=== PATIENT | male | born 1960 | race Two or more races ===

== ENCOUNTER 2016-05-19 20:31 | Emergency (ER) | payer SELFPAY ==
--- NOTE | 2016-05-19 20:35 | EDPHY ---
H & P Time Seen by Provider: 05/19/16 20:35 HPI/ROS: CHIEF COMPLAINT: Nausea and vomiting HISTORY OF PRESENT ILLNESS: Patient is diabetes and is a patient of [facility]. He had oysters at 2:00 p.m. and then at 5:00 p.m. started having multiple episodes of nausea and vomiting. No diarrhea or abdominal pain. No fever or chills. No blood or coffee grounds in the emesis. Symptoms moderate to severe and worse with trying to eat or drink anything. REVIEW OF SYSTEMS: Eye: no change in vision ENT: no sore throat Cardiac: no chest pain or syncope Pulmonary: no cough or SOB Abdomen: HPI Musculoskeletal: no back pain Skin: no rash Neuro: no headache Constitutional: no fever : no urinary symptoms A comprehensive 10 point review of systems is otherwise negative aside from elements mentioned in the history of present illness. PAST MEDICAL HISTORY: Diabetes Social history: Primarily Somali speaking, here with his daughter. General Appearance: Alert and conversant, cooperative. Eyes: No scleral icterus. ENT, Mouth: Dry mucous membranes. Respiratory: Normal respiratory effort, breath sounds equal, lungs are clear to auscultation. Cardiovascular: Regular rate and rhythm. Gastrointestinal: Abdomen is soft and non tender. Neurological: Alert and follows commands. Normally conversant, in Somali. Face symmetric, normal movement and sensation in all extremities. Skin: Warm and dry, no rashes. Musculoskeletal: No peripheral edema and no joint swelling. Psychiatric: Not agitated. Emergency Department course/MDM: Zofran 4 mg IV and normal saline 2 L IV for dehydration from nausea and vomiting. EKG and labs to include CBC and chemistry. 2350: Feels better, wants to tolerate oral fluids, abdomen soft and nontender Likely food related or viral , doubt surgical process. Not in DKA. Smoking Status: Never smoked Constitutional: Initial Vital Signs Temperature (C) 36.3 C 05/19/16 20:31 Heart Rate 90 05/19/16 20:31 Respiratory Rate 18 05/19/16 20:31 Blood Pressure 140/85 H 05/19/16 20:31 O2 Sat (%) 96 05/19/16 20:31 O2 Delivery Mode Room Air O2 (L/minute) 2 Allergies/Adverse Reactions: No Known Allergies Allergy (Verified 05/19/16 20:50) Home Medications: Medication Instructions Recorded Acyclovir [Zovirax 400 mg (*)] 400 mg PO .TID #20 tab 05/11/12 Htn Pill 05/11/12 Atorvastatin Calcium 10/08/13 LORazepam [Ativan 1 mg (RX)] 1 mg PO Q6-8PRN PRN #10 tab 10/08/13 Levemir 10/08/13 Insulin Regular Human 05/19/16 Medical Decision Making - Diagnostics EKG Interpretation: 12-lead EKG interpreted by me; official reading is in trace master. My interpretation is sinus rhythm, rate 78, no ischemic changes. Differential Diagnosis: Differential considered including but not limited to gastroenteritis, food poisoning, acute coronary syndrome, diabetic problem - Data Points Laboratory Results: Laboratory Results 05/19/16 20:50 05/19/16 20:50 05/19/16 05/19/16 20:50 20:50 WBC 11.43 10^3/uL H 10^3/uL (3.80-9.50) RBC 5.69 10^6/uL 10^6/uL (4.40-6.38) Hgb 17.5 g/dL g/dL (13.7-17.5) Hct 49.5 % % (40.0-51.0) MCV 87.0 fL fL (81.5-99.8) MCH 30.8 pg pg (27.9-34.1) MCHC 35.4 g/dL g/dL (32.4-36.7) RDW 12.0 % % (11.5-15.2) Plt Count 218 10^3/uL 10^3/uL (150-400) MPV 9.5 fL fL (8.7-11.7) Neut % (Auto) 79.4 % H % (39.3-74.2) Lymph % (Auto) 14.4 % L % (15.0-45.0) [place] % (Auto) 4.7 % % (4.5-13.0) Eos % (Auto) 0.6 % % (0.6-7.6) Baso % (Auto) 0.3 % % (0.3-1.7) Nucleat RBC Rel Count 0.0 % % (0.0-0.2) Absolute Neuts (auto) 9.07 10^3/uL H 10^3/uL (1.70-6.50) Absolute Lymphs (auto) 1.65 10^3/uL 10^3/uL (1.00-3.00) Absolute Monos (auto) 0.54 10^3/uL 10^3/uL (0.30-0.80) Absolute Eos (auto) 0.07 10^3/uL 10^3/uL (0.03-0.40) Absolute Basos (auto) 0.03 10^3/uL 10^3/uL (0.02-0.10) Absolute Nucleated RBC 0.00 10^3/uL 10^3/uL (0-0.01) Immature Gran % 0.6 % % (0.0-1.1) Immature Gran # 0.07 10^3/uL 10^3/uL (0.00-0.10) Sodium 132 mEq/L L mEq/L (134-144) Potassium 3.9 mEq/L mEq/L (3.5-5.2) Chloride 97 mEq/L mEq/L (97-110) Carbon Dioxide 23 mEq/l mEq/l (22-31) Anion Gap 12 mEq/L mEq/L (8-16) BUN 21 mg/dL mg/dL (7-23) Creatinine 0.5 mg/dL L mg/dL (0.7-1.3) Estimated GFR > 60 Glucose 411 mg/dL H mg/dL (70-100) Calcium 9.5 mg/dL mg/dL (8.5-10.4) Medications Given: Discontinued Medications Sodium Chloride (Ns) 1,000 mls @ 0 mls/hr IV ONCE ONE PRN Reason: Wide Open Stop: 05/19/16 20:43 Last Admin: 05/19/16 20:52 Dose: 1,000 mls Sodium Chloride (Ns) 1,000 mls @ 0 mls/hr IV ONCE ONE PRN Reason: Wide Open Stop: 05/19/16 20:43 Last Admin: 05/19/16 20:53 Dose: 1,000 mls Ondansetron HCl (Zofran) 4 mg IVP EDNOW ONE Stop: 05/19/16 20:43 Last Admin: 05/19/16 20:53 Dose: 4 mg Ondansetron HCl (Zofran Odt 4 Mg Prepack#2) 1 btl TAKEAPOLLO MILLER ONE Stop: 05/19/16 22:51 Last Admin: 05/19/16 23:04 Dose: 1 btl Departure - Departure Disposition: Home, Routine, Self-Care Clinical Impression: Nausea & vomiting Qualifiers: Vomiting type: unspecified Vomiting Intractability: non-intractable Qualified Code(s): R11.2 - Nausea with vomiting, unspecified Condition: Good Instructions: Ondansetron (By mouth), Acute Nausea and Vomiting (ED) Referrals: [facility],. [Clinic] - As per Instructions
[2016-05-19] MEDS ORDERED: NS 1,000 ML IV ONE ×2 (20:42)
[2016-05-19] MEDS ORDERED: ONDANSETRON 4 MG/2 ML VIAL IVP ONE (20:42)
[2016-05-19] MEDS ORDERED: ONDANSETRON 4 MG/2 ML VIAL ONE (20:45)
--- NOTE | 2016-05-19 20:56 | CPEKG ---
Heart Rate: 78 RR Interval: 769 P-R Interval: 180 QRSD Interval: 94 QT Interval: 384 QTC Interval: 438 P [place]: 67 QRS [place]: 58 T Wave [place]: 16 EKG Severity - NORMAL ECG - EKG Impression: SINUS RHYTHM Electronically Signed By: Frandy Camacho 19-May-2016 20:58:14
[2016-05-19 21:03] VITALS: RESP 20
[2016-05-19 21:09] LABS: % IMMATURE GRANULYOCYTES 0.6 % (0.0-1.1); ABSOLUTE IMMATURE GRANULOCYTES 0.07 10^3/uL (0.00-0.10); ADD DIFF? NO; ADD MORPH? NO; ADD SCAN? NO; ATYPICAL LYMPHOCYTE FLAG 10 (0-99); FRAGMENT RBC FLAG 0 (0-99); HEMATOCRIT 49.5 % (40.0-51.0); HEMOGLOBIN 17.5 g/dL (13.7-17.5); LEFT SHIFT FLG 10 (0-99); LIPEMIA HEMOLYSIS FLAG 90 (0-99); MEAN CELL HEMOGLOBIN 30.8 pg (27.9-34.1); MEAN CELL HEMOGLOBIN CONCENTR. 35.4 g/dL (32.4-36.7); MEAN PLATELET VOLUME 9.5 fL (8.7-11.7); PLATELET CLUMPS FLAG 0 (0-99); PLATELET COUNT 218 10^3/uL (150-400); RED BLOOD CELL COUNT 5.69 10^6/uL (4.40-6.38)
[2016-05-19 21:32] LABS: ANION GAP 12 mEq/L (8-16); CALCIUM 9.5 mg/dL (8.5-10.4); CARBON DIOXIDE 23 mEq/l (22-31); CHLORIDE 97 mEq/L (97-110); CREATININE 0.5 mg/dL (0.7-1.3); GLOMERULAR FILTRATION RATE > 60; GLUCOSE 411 mg/dL (70-100); POTASSIUM 3.9 mEq/L (3.5-5.2); SODIUM 132 mEq/L (134-144)
[2016-05-19 22:14] VITALS: TEMP 97.7
[2016-05-19] MEDS ORDERED: ONDANSETRON 4MG PREPACK#2 BTL TAKEHOME ONE (22:50)
[2016-05-19 23:05] VITALS: BP 116/68; PULSE 80; O2SAT 97
== END 2016-05-19 23:07 | disposition home or self-care (01) ==
DX: R11.2 Nausea with vomiting, unspecified (principal); E11.9 Type 2 diabetes mellitus without complications; Z79.4 Long term (current) use of insulin
CPT/HCPCS: 96374; J2405

== ENCOUNTER 2017-04-29 13:34 | Inpatient (IN) | payer MEDICAID ==
[2017-04-29] MEDS ORDERED: NITROGLYCERIN 0.4 MG BTL SL ONE (13:43)
[2017-04-29] MEDS ORDERED: LIDOCAINE 1% 300 MG/30 ML SDV ONE (13:46)
[2017-04-29] MEDS ORDERED: fentaNYL 100 MCG/2 ML INJ ONE (13:46)
[2017-04-29] MEDS ORDERED: MIDAZOLAM 2 MG/2 ML VIAL ONE (13:47)
[2017-04-29] MEDS ORDERED: IOPAMIDOL (ISOVUE-370) 150 ML BTL IV ONE ×2 (13:47→14:46)
[2017-04-29] MEDS ORDERED: ASPIRIN 81 MG CHEWABLE TAB ONE (13:48)
--- NOTE | 2017-04-29 13:48 | EDPHY ---
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 He has associated dyspnea and nausea, but no vomiting. He does not think he has a cardiac disease history. 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 REVIEW OF SYSTEMS: Aside from elements discussed in the HPI, a comprehensive 10-point review of systems was reviewed and is negative. PMH: Insulin-dependent diabetes. SOCIAL HISTORY: Primarily Kuwaiti-speaking. 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 Denies alcohol use. PHYSICAL EXAM: General:Patient is alert, tachypneic, appears very uncomfortable. ENT:Eyes are normal to inspection. ENT inspection normal. Neck: Normal inspection. Full range of motion. Respiratory:No respiratory distress. Breath sounds normal bilaterally. Cardiovascular: Regular rate and rhythm. Strong peripheral pulses. Normal cap refill. Abdomen:The abdomen is nontender to palpation. There are no peritoneal signs. Back: Normal to inspection. No tenderness to palpation. Skin: Normal color. No rash. Warm and dry. Extremities: Normal appearance. Full range of motion. Neuro: Oriented x3. Normal motor function. Normal sensory function. ED Course: This is a 57 y/o male with diabetes who presents with a 6-hour history of acute substernal chest pain radiating into his left arm with associated nausea. He is ill-appearing, tachypneic, and diaphoretic. Presentation concerning for acute coronary syndrome. Plan for 2 IVs, labs, EKG. The 12 lead EKG was interpreted by myself. STEMI, likely LAD lesion. See hard copy and/or "tracemaster" electronic copy for interpretation. 1339: Cardiac alert activated. 1344: Dr. Cameron, emt i/85, at bedside assessing patient. 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 Critical care time spent by me, Dr. Branch, exclusively with this patient was 20 minutes, exclusive of PA time and exclusive of procedures. The organ system at risk was cardiovascular. Time spent in serial assessments of the patient, consideration of interventions, cardiology consultation, and review of EKGs. General Initial Vital Signs: Initial Vital Signs Temperature (C) 36.8 C 04/29/17 13:39 Heart Rate 92 04/29/17 13:39 Respiratory Rate 24 H 04/29/17 13:39 Blood Pressure 141/80 H 04/29/17 13:39 O2 Sat (%) 100 04/29/17 13:39 O2 Delivery Mode Room Air Allergies/Adverse Reactions: No Known Allergies Allergy (Verified 05/19/16 20:50) Home Medications: Medication Instructions Recorded Insulin Detemir [Levemir Flextouch] 20 unit SQ DAILY 10/08/13 Insulin Aspart [Novolog Flexpen] 10 unit SQ DAILYAC 05/19/16 Herbals/Supplements -Info Only 1 ea PO DAILY 04/29/17 Insulin Detemir [Levemir Flextouch] 10 unit SQ HS 04/29/17 Departure - Departure Disposition: To OP Cath/Surgery Clinical Impression: STEMI (ST elevation myocardial infarction) Qualifiers: Involved coronary artery: LAD coronary artery Qualified Code(s): I21.02 - ST elevation (STEMI) myocardial infarction involving left anterior descending coronary artery Condition: Fair Report Scribed for: Santo Branch Report Scribed by: Sandra Castillo Date of Report: 04/29/17 Time of Report: 13:49 Physician Review and Approval Statement: Portions of this note were transcribed by an ED scribe. I personally performed the history, physical exam, and medical decision making; and confirm the accuracy of the information in the transcribed note.
[2017-04-29] MEDS ORDERED: HEPARIN 10,000 UNIT/10 ML MDV (1,000 UNIT/ML) ONE (13:50)
[2017-04-29] MEDS ORDERED: BIVALIRUDIN 250 MG/5 ML VIAL IV ONE (13:50)
--- NOTE | 2017-04-29 13:50 | CPEKG ---
Heart Rate: 93 RR Interval: 645 P-R Interval: 176 QRSD Interval: 120 QT Interval: 344 QTC Interval: 428 P [place]: 72 QRS [place]: 15 T Wave [place]: 65 EKG Severity - ABNORMAL ECG - EKG Impression: STEMI EKG Impression: SINUS RHYTHM EKG Impression: INCOMPLETE LEFT BUNDLE BRANCH BLOCK EKG Impression: ANTERIOR Q WAVES, POSSIBLY DUE TO ILBBB Electronically Signed By: Santo Branch 29-Apr-2017 14:53:51
[2017-04-29 13:57] LABS: PLATELET COUNT 243 10^3/uL (150-400)
[2017-04-29 14:09] LABS: INR 0.85 (0.83-1.16); PROTIME(PATIENT) 11.8 SEC (12.0-15.0)
[2017-04-29] MEDS ORDERED: ONDANSETRON 4 MG/2 ML VIAL ONE (14:17)
--- NOTE | 2017-04-29 14:18 | GHP ---
[f rep st] HISTORY AND PHYSICAL DATE OF ADMISSION: 04/29/2017 REASON FOR ADMISSION: Acute anterior ST-segment elevation myocardial infarction. HISTORY OF PRESENT ILLNESS: The patient is an insulin-dependent diabetic with no prior cardiac histo ry. Approximately 8 o'clock this morning he developed significant substernal chest pain with radiati on to the left arm. Eventually, his boss transported him to the emergency room at [facility]. Here, his initial ECG demonstrates ST-segment elevation in the anterior leads consistent with an acute myocardial infarction. PAST MEDICAL HISTORY: Positive for insulin-dependent diabetes. He says he does not have hypertensio n. He does not know the status of his cholesterol. MEDICATIONS: Unknown at this time. ALLERGIES: No known drug allergies. FAMILY HISTORY: Noncontributory. SOCIAL HISTORY: He is a nonsmoker and does not consume alcohol. Details regarding his living situat ion and occupational status were not obtained. REVIEW OF SYSTEMS: Apart from the chest discomfort that prompted this hospital encounter, a 10-point review was negative. PHYSICAL EXAMINATION: VITAL SIGNS: Heart rate in the 90s with sinus rhythm on the monitor. Blood p ressure 141/80, O2 saturation 100% on room air. GENERAL: This is a middle aged male, who a ppears in at least moderate discomfort. HEAD AND NECK: No scleral icterus. Mucous membranes moist. Carotid pulses 2+ without bruits. CHEST: Lung poole clear to auscultation. CARDIAC: Regular ra te and rhythm with normal S1 and S2. No murmur or gallop appreciated. ABDOMEN: Soft, nontender, no ndistended, with normal bowel sounds. EXTREMITIES: 2+ pulses and no peripheral edema. LABORATORY STUDIES: Pending at the time of this dictation. ECG: His ECG demonstrates sinus rhythm. There was an incomplete left bundle branch block. He has u p to [address]-segment elevation from lead V2 to V5. IMPRESSION: This is a 57-year-old male with clinical presentation of chest pain and ECG changes cons istent with an acute anterior ST-segment elevation myocardial infarction. He is hemodynamically stab le. He has not had any arrhythmias. He does not exhibit evidence of congestive heart failure. PLAN: Preparations are underway to take the patient to the cardiac catheterization lab emergently fo r angiography and probable percutaneous coronary intervention. The patient will require a hospital s [place] greater than 2 midnights for care of his acute myocardial infarction. /[id number]/MODL
[2017-04-29] MEDS ORDERED: NITROGLYCERIN 1,500 MCG/15 ML VIAL MISC ONE (14:29)
[2017-04-29] MEDS ORDERED: EPTIFIBATIDE 20 MG/10 ML VIAL IVP ONE (14:32)
[2017-04-29] MEDS ORDERED: CLOPIDOGREL BISULFATE 75 MG TAB ONE (15:18)
[2017-04-29] MEDS ORDERED: ATROPINE SULFATE 1 MG/10 ML SYR IVP PRN (15:36)
[2017-04-29] MEDS ORDERED: CLOPIDOGREL BISULFATE 75 MG TAB PO ONE (15:36)
[2017-04-29] MEDS ORDERED: LORazepam 2 MG/ML INJ IVP PRN (15:36)
[2017-04-29] MEDS ORDERED: ACETAMINOPHEN 325 MG TAB PO PRN (15:36)
[2017-04-29] MEDS ORDERED: NS 1,000 ML IV SCH (15:45)
[2017-04-29] MEDS ORDERED: EPTIFIBATIDE 100 ML IV SCH ×2 (16:30)
--- NOTE | 2017-04-29 16:47 | CPEKG ---
Heart Rate: 69 RR Interval: 870 P-R Interval: 164 QRSD Interval: 86 QT Interval: 388 QTC Interval: 416 P [place]: 63 QRS [place]: 83 T Wave [place]: 88 EKG Severity - ABNORMAL ECG - EKG Impression: SINUS RHYTHM EKG Impression: CONSIDER ANTEROSEPTAL INFARCT EKG Impression: NONSPECIFIC T ABNORMALITIES, LATERAL LEADS EKG Impression: MINIMAL INFEROLATERAL ST ELEVATION. EKG Impression: COMPARED WITH 04/29/2017 AT 1:39 P.M., ST ELEVATION HAS IMPROVED DRAMATICALLY Electronically Signed By: Luz Peck 30-Apr-2017 18:08:12
[2017-04-29] MEDS ORDERED: D50W 25 GM/50 ML SYR IVP PRN (17:02)
[2017-04-29] MEDS ORDERED: INSULIN LISPRO 100 UNIT/ML SC SCH (18:00)
[2017-04-29] MEDS: CARVEDILOL 3.125 MG TAB PO SCH (18:36)
[2017-04-29] MEDS ORDERED: INSULIN DETEMIR 10 UNIT SQ SCH ×2 (21:00)
[2017-04-29] MEDS ORDERED: INSULIN GLARGINE 100 UNITS/ML UNIT SC SCH (21:00)
--- NOTE | 2017-04-29 21:42 | GCON ---
[f rep st] CONSULTATION REQUESTING PHYSICIAN: Constantine Cameron MD CONSULTING QUESTION: Medical management. HISTORY OF PRESENT ILLNESS: A 57-year-old male with a history of insulin-dependent diabetes, who pre sents with complaints of chest pain. Per the patient's description, he had been having stuttering sy mptoms with exertion and rest in the several days prior to his presentation. On the morning of prese ntation approximately 8 o'clock, developed substernal chest discomfort which radiated to his left arm , severe, associated with nausea, vomiting, diaphoresis, and shortness of breath. He was therefore b rought to the emergency department for evaluation. In the ED, patient was seen by Cardiology and fredis rgently taken for cardiac cath. My interview occurs post catheterization. The patient is reporting to be chest pain free. He denies any shortness of breath, diaphoresis, dizziness, abdominal discomfo rt, lower extremity discomfort. Denies any recent symptoms of orthopnea, PND, or lower extremity nelli ma. PAST MEDICAL HISTORY: Diabetes for which he takes oral medications and insulin. SOCIAL HISTORY: Negative for tobacco, alcohol, or illicit drugs. FAMILY HISTORY: Patient denies any other relatives with a history of heart disease. REVIEW OF SYSTEMS: A 10-point review of systems is negative with the exception of that reported in t he HPI. PHYSICAL EXAMINATION: VITAL SIGNS: Blood pressure 110/68, heart rate 70, respiratory rate 15, satur ating 100% on 4 L, 36.7. GENERAL: This is a very pleasant male, lying flat in bed HEENT: Notable f or moist mucous membranes. Eye exam is negative for any icterus. CARDIAC: Regular rate and rhythm. PULMONARY: Clear to auscultation bilaterally. GASTROINTESTINAL: Positive bowel sounds. Abdomen is soft and nontender. MUSCULOSKELETAL: Negative for any lower extremity edema. SKIN: Negative for any rashes. NEUROLOGIC: He is alert and oriented x3. PSYCHIATRIC: He is pleasant and cooperative o n interview and examination. DATA: Troponin 0.076. EKG, which I personally reviewed and interpreted, shows ST elevations in the precordial leads. ASSESSMENT AND PLAN: This is a 57-year-old diabetic male, presenting with ST-elevation myocardial in farction. 1. ST-elevation myocardial infarction. Patient was taken emergently to the cardiac laboratory machinist. Dr. Philip day placed a stent to the left anterior descending. He is chest pain free on my interview, noemi rice in his post cath time lying flat and is on an Integrilin drip. Cardiology will manage the ST-elev ation myocardial infarction. 2. Diabetes. Patient's blood glucose is in the 300s at presentation. He reportedly takes long-acti ng insulin in the home, which we have not confirmed. Will initiate lispro sliding scale insulin, as well as glargine this evening low-dose 10 units to assist with glycemic control. We can further up t itrate the regimen once his medications have been confirmed by the med reconciliation pharmacist. Wi ll additionally check a hemoglobin A1c. 3. Prophylaxis. Patient is on Integrilin drip. 4. Diet. Cardiac. DISPOSITION: Greater than 2 midnights as the patient is presenting with an ST-elevation myocardial i nfarction requiring close cardiac monitoring in his postprocedural time. I have discussed the case w ith the ICU nurse. Patient will be admitted to the ICU and monitored closely post catheterization. Thank you for the consultation. We will follow along with you. /[id number]/MODL
[2017-04-29 21:58] LABS: CREATINE KINASE 2066 IU/L (0-224)
[2017-04-30 05:19] LABS: PLATELET COUNT 150 10^3/uL (150-400)
[2017-04-30] MEDS: HYDROCODONE/APAP 5/325 TAB PO PRN (05:19)
[2017-04-30 05:33] LABS: CREATINE KINASE 1493 IU/L (0-224)
[2017-04-30] MEDS ORDERED: INSULIN ASPART 10 UNIT SQ SCH ×2 (07:30)
--- NOTE | 2017-04-30 08:52 | CPEKG ---
Heart Rate: 64 RR Interval: 938 P-R Interval: 164 QRSD Interval: 92 QT Interval: 412 QTC Interval: 425 P [place]: 64 QRS [place]: 78 T Wave [place]: 104 EKG Severity - ABNORMAL ECG - EKG Impression: SINUS RHYTHM EKG Impression: CONSIDER ANTEROSEPTAL INFARCT EKG Impression: ABNORMAL T, CONSIDER ISCHEMIA, LATERAL LEADS EKG Impression: MINIMAL INFEROLATERAL ST ELEVATION EKG Impression: COMPARED WITH 04/09/2017 AT 4:45 P.M., CHANGES CONSISTENT WITH EVOLVING ACUTE EKG Impression: INFEROLATERAL MA ARE SEEN. Electronically Signed By: Luz Peck 30-Apr-2017 18:07:19
[2017-04-30] MEDS ORDERED: INSULIN DETEMIR 20 UNIT SQ SCH (09:00)
[2017-04-30] MEDS ORDERED: NON-FORMULARY NEW DRUG (Insulin Detemir [Levemir Flextouch] 20 UNIT) SQ SCH (09:00)
[2017-04-30] MEDS ORDERED: LISINOPRIL 5 MG TAB PO SCH (09:00)
[2017-04-30] MEDS: ATORVASTATIN CALCIUM 40 MG TAB PO SCH (09:37)
[2017-04-30] MEDS: CLOPIDOGREL BISULFATE 75 MG TAB PO SCH (09:38)
[2017-04-30] MEDS: ASPIRIN EC 325 MG TAB PO SCH (09:38)
[2017-04-30] MEDS: CARVEDILOL 3.125 MG TAB PO SCH ×2 (10:58→17:57)
[2017-04-30] MEDS: ONDANSETRON 4 MG/2 ML VIAL IVP PRN ×2 (12:06→20:07)
--- NOTE | 2017-04-30 12:06 | CPEKG ---
Heart Rate: 63 RR Interval: 952 P-R Interval: 156 QRSD Interval: 78 QT Interval: 416 QTC Interval: 426 P [place]: 56 QRS [place]: 87 T Wave [place]: 116 EKG Severity - ABNORMAL ECG - EKG Impression: SINUS RHYTHM EKG Impression: CONSIDER ANTEROSEPTAL INFARCT EKG Impression: MINIMAL INFEROLATERAL ST ELEVATION. EKG Impression: ABNORMAL T, CONSIDER ISCHEMIA, ANT-LAT LEADS EKG Impression: COMPARED WITH 04/30/2017 AT 8:51 A.M., NO SIGNIFICANT CHANGE Electronically Signed By: Luz Peck 30-Apr-2017 18:06:35
[2017-04-30] MEDS: DOPamine 400 MG in D5W 250 ML IV SCH (12:40)
--- NOTE | 2017-04-30 12:55 | PDDXCAT ---
Diagnostic Cath Note - . 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 LAD: Proximal LAD 100%. LCX: Normal. RCA: Minimal irregularities. EDP: 30 mmHg LVEF: 30% Wall motion: Anterior and apical akinesis. Complications: None Estimated blood loss: <50ml Closure method: Angioseal Assessment: 1) Ischemic cardiomyopathy with severely reduced left ventricular systolic function. 2) Coronary artery disease as described above. 3) Successful PCI with placement of 2 drug-coated stents in left anterior descending and balloon angioplasty of the principal diagonal branch. Intervention: Based on the patient's clinical presentation and diagnostic angiography, the decision was made to perform PCI of the occluded left anterior descending. The patient received intravenous Angiomax. A 6 Czech CLS 3.5 guide catheter was advanced to the left main. An Intuition guidewire was advanced to the apical portion of the left anterior descending. At this point, anterograde flow was reestablished and angiography demonstrated a lengthy segment of high-grade disease in the proximal to mid-LAD. In addition, the principal diagonal branch has a significant ostial stenosis as well as a moderate to high-grade stenosis involving the inferior branch following a bifurcation. A second Intuition guidewire was advanced into the distal portion of the principal diagonal branch. Predilatation of the mid to proximal LAD was performed using a 2.5 x 15 mm Emerge balloon. The Emerge balloon was then used to perform angioplasty of the proximal portion of the principal diagonal branch. A 3.0 x 38 mm Synergy stent was then advanced into the proximal to mid-LAD. The guidewire in the diagonal branch was removed. The stent was deployed at high pressure. There was evidence of some of under-expansion at the midportion of the stent. Therefore, postdilatation inflations were performed using a 3.0 x 15 NC Emerge balloon. The second Intuition guidewire was then readvanced into the diagonal branch through "stent care home". The proximal portion the diagonal branch was dilated using a 2.5 x 12 mm Emerge balloon. A 3.5 x 8 mm Synergy stent was then advanced into position proximal to the first stent but with slight overlap. The stent was deployed at high pressure. An additional high pressure inflation was performed at the overlapped segment. Final angiograms demonstrated 0% residual stenosis in the LAD and less than 30% residual stenosis in the ostium of the principal diagonal branch. Patient Problems: Problems Problem Status Onset STEMI (ST elevation myocardial infarction) Acute
--- NOTE | 2017-04-30 13:21 | PDCARPN ---
Cardiology Progress Note Assessment/Plan: Anterior ST Segment Elevation Myocardial Infarction: Some recurrent chest discomfort early this morning diferent than what he had yesterday. ECG demonstrates anteroseptal Q-waves and the beginnings of evolutionary T-wave changes in the precordial leads. ST segment elevation from yesterday resolved. Coronary Artery Disease: s/p PCI with placement of 2 stents in the LAD and balloon angioplasty of the principal diagonal branch. Has some residual disease in the diagonal branch. Ischemic Cardiomyopathy: LVEF approximately 30% with akinesis of the LAD territory. No evidence of CHF yet. - Will likely need 3-6 months systemic anticoagulation with warfarin to reduce the risk of apical mural thrombus and embolic complications. Secondary Prevention: Will need beta-javi and MATTHEW-inhibitor. Dual antiplatelet therapy for 12 months. May go to a single antiplatelet agent during the time that he is on warfarin. Consider addition of Aldactone later. Lipid panel this morning demonstrated a total cholesterol of 205 with HDL 34, LDL 140, triglycerides 157. - Statin therapy started. Diabetes: Hemoglobin A1c significantly elevated at 12.9 - Hospitalist service assisting with management. 04/30/17 13:41 Subjective: Some chest pain early this a.m. Reviewed/Discussed With: family Objective: Vital Signs (8 Hrs) Temp Pulse Resp BP Pulse Ox 04/30/17 13:07 62 15 84/46 L 99 04/30/17 12:40 36.6 C 61 14 80/50 L 10 L 04/30/17 12:00 61 16 85/54 L 99 04/30/17 09:44 70 13 83/49 L 98 04/30/17 08:00 37.1 C 66 18 93/57 L 99 04/30/17 07:00 66 15 87/55 L 100 04/30/17 06:00 61 16 84/53 L 99 Intake/Output (24 Hrs) 04/29/17 04/30/17 05/01/17 05:59 05:59 05:59 Intake Total 2901.9 Output Total 650 Balance 2251.9 Intake: Oral (ml) 850 IV Intake (ml) 1000 IV Infused (ml) 1051.9 Eptifibatide 100 ml @ As 64.9 Directed 4.3 mls/hr IV CONT CELINE Rx#:[id number] Ns 1,000 ml @ 100 mls/hr 987 IV CONT CELINE Rx#: [id number] Output: Urine (ml) 650 Urinal 650 Other: Weight 72.121 kg Number of Voids Urinal 3 Result Diagrams: 04/30/17 05:00 04/30/17 05:00 Cardiac Labs: Cardiac Lab Results (72 Hrs) 04/30/17 04/29/17 05:00 21:25 CK-MB (CK-2) Fraction 91.90 H 90.60 H Troponin I 35.900 H 30.300 H - Physical Exam Constitutional: WDWN, no apparent distress Eyes: anicteric sclera Ears, Nose, Mouth, Throat: moist mucous membranes Cardiovascular: regular rate and rhythm, no murmurs, no rubs, no gallops Respiratory: clear to auscultate bilat Gastrointestinal: normoactive bowel sounds, no tenderness, no masses Skin: no edema Neurologic: AAOx3 Psychiatric: not anxious ICD10 Worksheet Patient Problems: Problems Problem Status Onset STEMI (ST elevation myocardial infarction) Acute
--- NOTE | 2017-04-30 15:04 | ECHO ---
[email or web address] [address] Main: [phone] Fax: [email or web address] Echocardiogram Name: MECHE CUELLO MR#: [id number] Study Date: 04/30/2017 Study Time: 07:59 AM Date of : 1960 Age: 57 year(s) Height: 167.6 cm (66 in.) Weight: 71.67 kg (158 lb.) BSA: 1.81 m2 Gender: Male Examination: Echo Indication: STEMI Image Quality: Contrast: Requested by: Constantine Cameron BP: 93 mmHg/57 mmHg Heart Rate: Rhythm: Indication: STEMI Procedure Staff Leather Repairer: Parker Jennings RDCS Reading Physician: Constantine Cameron Requesting Provider: Conclusions: Normal size left ventricle. Diastolic dysfunction is present. . There is basilar, mid to apical anteroseptal hypokinesis. The EF is estimated at 35-40%. There is no significant mitral valve regurgitation. There is no aortic valve regurgitation. The tricuspid valve is normal in appearance and function. No pericardial effusion. Measurements: Chambers Valvular Assessment AV/MV Valvular Assessment TV/PV Normal Normal Normal Name Value Range Name Value Range Name Value Range Ao Kavitha (MM): 3.2 cm (2.2 cm-3.7 AV Vmax: 0.91 m/s (1 m/s-1.7 PV Vmax: 0.80 m/s (0.6 m/s-0.9 cm) m/s) m/s) IVSd (2D): 0.9 cm (0.6 cm-1.1 AV maxP mmHg ( - ) PV PGmax: 3 mmHg ( - ) cm) LVOT Vmax: 0.80 m/s (0.7 m/s-1.1 LVDd (2D): 4.7 cm (4.2 cm-5.9 m/s) cm) MV E Vmax: 0.61 m/s ( - ) LVDs (2D): 3.4 cm (2.1 cm-4 MV A Vmax: 0.51 m/s ( - ) cm) MV E/A: 1.20 ( - ) LVPWd (2D): 1.0 cm (0.6 cm-1 cm) LVEF (BP): 40 % (>=55 %) Continued Measurements: Chambers Valvular Assessment AV/MV Name Value Name Value LADs Lon.0 cm MV E/E' Septal: 10.60 LA Area: 15.4 cm2 MV E/E' Lateral: 7.60 Patient: MECHE CUELLO Study Date: 04/30/2017 Page 1 of 2 07:59 AM LA Volume: 37 ml LA Volume Index: 20.4 ml/m2 Findings: Left Ventricle: Normal size left ventricle. Diastolic dysfunction is present. . There is basilar, mid to apical anteroseptal hypokinesis. The EF is estimated at 35-40%. Right Ventricle: Normal size right ventricle. Normal RV function. Left Atrium: The left atrium is normal in size. Right Atrium: The right atrium is normal in size. Mitral Valve: The mitral valve is normal in appearance and function. There is no significant mitral valve regurgitation. Aortic Valve: The aortic valve is tri-leaflet and functions normally. There is no aortic valve regurgitation. Tricuspid Valve: The tricuspid valve is normal in appearance and function. Pulmonic Valve: The pulmonic valve is normal in appearance and function. Aorta: The aorta is normal. Pericardium: No pericardial effusion. (No Signature Object) Patient: MECHE CUELLO Study Date: 04/30/2017 Page 2 of 2 07:59 AM [id number]
[2017-04-30] MEDS ORDERED: ALTEPLASE 2 MG VIAL IVP PRN (15:41)
--- NOTE | 2017-04-30 16:05 | HOSPPROG ---
Hospitalist Progress Note Assessment/Plan: # STEMI s/p DESx2 to LAD - cont asa/plavix/statin - holding BB and MATTHEW given hypotension # cardiogenic shock requiring dopamine - cont dopamine; place PICC; follow in ICU # DM2 - A1c 12.9% - incr glargine 22/01 -> U - cont lispro 10 AC Subjective: had CP and dizziness at 1p, now resolved Objective: Vital Signs Temp Pulse Resp BP Pulse Ox 36.6 C 64 16 112/49 L 99 04/30/17 12:40 04/30/17 15:04 04/30/17 15:04 04/30/17 15:04 04/30/17 15:04 Laboratory Results 04/30/17 05:00 04/30/17 05:00 04/29/17 04/30/17 05/01/17 05:59 05:59 05:59 Intake Total 2901.9 Output Total 650 Balance 2251.9 PT 11.8 SEC (12.0-15.0) L 04/29/17 13:45 INR 0.85 (0.83-1.16) 04/29/17 13:45 35 mins floor cc time - Physical Exam Constitutional: other (slightly diaphoretic) Cardiovascular: regular rate and rhythym, other (S3) Respiratory: no respiratory distress, no rales or rhonchi, clear to auscultation Gastrointestinal: normoactive bowel sounds, soft, non-tender abdomen, no palpable masses ICD10 Worksheet Patient Problems: Problems Problem Status Onset STEMI (ST elevation myocardial infarction) Acute
[2017-04-30] MEDS ORDERED: D50W 25 GM/50 ML SYR IVP PRN (16:09)
--- NOTE | 2017-04-30 16:33 | ASMTCMCOM ---
CM Note CM Note Notes: 04/30/2017 Case Management Note Pt admitted for treatment of STEMI. There are no case management d/c needs identified d/t pt age, marital status, employment status and activity levels prior to admission. There is a Cardiac Rehab eval ordered but no PT evals. Case Management d/c poc; anticipating independent with family support and follow up as directed, likely cardiac rehab as an outpatient. Case Management available if needs change. Date Signed: 04/30/2017 04:33 PM Electronically Signed By:Cassandra Kim RN
[2017-04-30] MEDS ORDERED: INSULIN LISPRO 100 UNIT/1 ML VIAL HIGH SC SCH (18:00)
[2017-04-30] MEDS ORDERED: INSULIN LISPRO 100 UNIT/ML SC SCH (18:00)
[2017-04-30] MEDS: INSULIN LISPRO 100 UNIT/1 ML VIAL STANDARD SC SCH (18:22)
[2017-04-30] MEDS ORDERED: WARFARIN SODIUM 5 MG TAB PO SCH (19:30)
[2017-04-30] MEDS: WARFARIN SODIUM 5 MG TAB PO SCH (19:54)
[2017-04-30] MEDS ORDERED: INSULIN GLARGINE 100 UNITS/ML UNIT SC SCH (21:00)
[2017-04-30] MEDS: TEMAZEPAM 15 MG CAP PO PRN (21:11)
[2017-05-01 05:21] LABS: PLATELET COUNT 142 10^3/uL (150-400)
[2017-05-01] MEDS: DOPamine 400 MG in D5W 250 ML IV SCH (05:32)
[2017-05-01 05:48] LABS: INR 0.97 (0.83-1.16); PROTIME(PATIENT) 13.1 SEC (12.0-15.0)
--- NOTE | 2017-05-01 05:54 | CPEKG ---
Heart Rate: 76 RR Interval: 789 P-R Interval: 164 QRSD Interval: 78 QT Interval: 448 QTC Interval: 504 P [place]: 56 QRS [place]: 90 T Wave [place]: 127 EKG Severity - ABNORMAL ECG - EKG Impression: SINUS RHYTHM EKG Impression: BORDERLINE RIGHT AXIS DEVIATION EKG Impression: Anteroseptal NC EKG Impression: ABNORMAL T, PROBABLE ISCHEMIA, LATERAL LEADS EKG Impression: PROLONGED QT INTERVAL EKG Impression: COMPARED WITH 04/30/2017 AT 12:04 P.M., CHANGES CONSISTENT WITH EVOLVING EKG Impression: ANTEROLATERAL NC ARE SEEN. QT INTERVAL IS NOW LONGER. Electronically Signed By: Luz Peck 01-May-2017 14:20:46
[2017-05-01] MEDS: CLOPIDOGREL BISULFATE 75 MG TAB PO SCH (08:21)
[2017-05-01] MEDS: INSULIN LISPRO 100 UNIT/1 ML VIAL STANDARD SC SCH ×3 (08:21→22:12)
[2017-05-01] MEDS: ATORVASTATIN CALCIUM 40 MG TAB PO SCH (08:21)
[2017-05-01] MEDS: CARVEDILOL 3.125 MG TAB PO SCH ×2 (08:21→22:12)
[2017-05-01] MEDS: LISINOPRIL 2.5 MG TAB PO SCH (08:50)
[2017-05-01] MEDS: ASPIRIN EC 325 MG TAB PO SCH (08:51)
[2017-05-01] MEDS ORDERED: INSULIN GLARGINE 100 UNITS/ML UNIT SC SCH ×2 (09:00→10:47)
--- NOTE | 2017-05-01 10:20 | PDCARPN ---
Cardiology Progress Note Assessment/Plan: Assessment: 1. Acute anterior stemi 2. Ischemic CM with LVEF 35% 3. Hypotension (on dopamine) 4. IDDM Plan: -Labwork tomorrow: BNP, BMP -Continue currrent medications -wean dopamine as tolerated to maintain MAP of 65 -Pt and family questions answered via [facility] underground utility locator 05/01/17 10:20 Subjective: 57 year old male admitted on Apr 29, 2017 with acute anterior STEMI with 100% prox LAD with PCI x 2 to LAD with 3.0 x 38 mm and 3.5 x 8 mm Synergy MARIELY. Echo demonstrated anterior septal hypokinesis with LVEF 35%. He was started on warfarin for apical HK. He did have some chest pain last night which has resolved. Via [facility] underground utility locator, pt has no complaints currently. He has been hypotensive and on Dopamine at 6 mcg/kg/ min. No events on telemetry. Right groin site is stable without hematoma or ecchymosis. No evidence of heart failure on exam. Time Spent With Patient: 25 minutes Objective: Vital Signs (8 Hrs) Temp Pulse Resp BP Pulse Ox 05/01/17 10:00 84 100/55 L 96 05/01/17 09:00 88 16 98/51 L 96 05/01/17 08:50 106/56 L 05/01/17 08:21 84 103/59 L 05/01/17 08:00 36.9 C 79 12 106/56 L 98 05/01/17 07:00 85 12 104/60 98 05/01/17 06:00 78 16 98/56 L 99 05/01/17 05:00 73 18 92/54 L 99 05/01/17 04:00 72 16 98/53 L 4 L 05/01/17 03:00 88 16 108/58 L 98 Intake/Output (24 Hrs) 04/30/17 05/01/17 05/02/17 05:59 05:59 05:59 Intake Total 2901.9 1757 Output Total 650 650 Balance 2251.9 1107 Intake: Oral (ml) 850 1150 IV Intake (ml) 1000 500 IV Infused (ml) 1051.9 107 DOPamine 400 mg In D5w 107 250 ml @ 5 MG/KG/MIN 64082.6 mls/hr IV CONT [facility] Rx#:[id number] Eptifibatide 100 ml @ As 64.9 Directed 4.3 mls/hr IV CONT [facility] Rx#:[id number] Ns 1,000 ml @ 100 mls/hr 987 IV CONT [facility] Rx#: [id number] Output: Urine (ml) 650 650 Urinal 650 650 Other: Weight 72.121 kg Number of Voids Urinal 3 3 Result Diagrams: 05/01/17 05:00 05/01/17 05:00 Cardiac Labs: Cardiac Lab Results (72 Hrs) 04/30/17 04/30/17 04/30/17 15:45 14:45 05:00 CK-MB (CK-2) Fraction REJ 91.90 H Troponin I 22.400 H REJ 35.900 H 04/29/17 21:25 CK-MB (CK-2) Fraction 90.60 H Troponin I 30.300 H ICD10 Worksheet Patient Problems: Problems Problem Status Onset STEMI (ST elevation myocardial infarction) Acute
--- NOTE | 2017-05-01 10:48 | HOSPPROG ---
Hospitalist Progress Note Assessment/Plan: # STEMI s/p DESx2 to LAD - cont asa/plavix/statin - holding BB and MATTHEW given hypotension # cardiogenic shock requiring dopamine - cont dopamine; follow in ICU # DM2 - A1c 12.9% - incr glargine 22/01 -> 20/20U -> - cont SSI Subjective: slight dizziness, no CP Objective: Vital Signs Temp Pulse Resp BP Pulse Ox 36.9 C 84 16 100/55 L 96 05/01/17 08:00 05/01/17 10:00 05/01/17 09:00 05/01/17 10:00 05/01/17 10:00 Laboratory Results 05/01/17 05:00 05/01/17 05:00 04/30/17 05/01/17 05/02/17 05:59 05:59 05:59 Intake Total 2901.9 1757 Output Total 650 650 Balance 2251.9 1107 PT 13.1 SEC (12.0-15.0) 05/01/17 05:00 INR 0.97 (0.83-1.16) 05/01/17 05:00 high risk - Physical Exam Constitutional: uncomfortable Cardiovascular: regular rate and rhythym, systolic murmur, No irregularly irregular Respiratory: no respiratory distress, no rales or rhonchi, clear to auscultation Gastrointestinal: soft, non-tender abdomen, no palpable masses ICD10 Worksheet Patient Problems: Problems Problem Status Onset STEMI (ST elevation myocardial infarction) Acute
[2017-05-01] MEDS: HYDROCODONE/APAP 5/325 TAB PO PRN (14:57)
[2017-05-01] MEDS: WARFARIN SODIUM 5 MG TAB PO SCH (17:09)
[2017-05-01] MEDS: TEMAZEPAM 15 MG CAP PO PRN (22:45)
[2017-05-02 05:38] LABS: PLATELET COUNT 136 10^3/uL (150-400)
[2017-05-02 05:41] LABS: INR 1.13 (0.83-1.16); PROTIME(PATIENT) 14.7 SEC (12.0-15.0)
[2017-05-02] MEDS: INSULIN LISPRO 100 UNIT/1 ML VIAL STANDARD SC SCH ×3 (09:00→18:00)
[2017-05-02] MEDS: CLOPIDOGREL BISULFATE 75 MG TAB PO SCH (09:15)
[2017-05-02] MEDS: INSULIN GLARGINE 100 UNITS/ML UNIT SC SCH ×2 (09:15→09:21)
[2017-05-02] MEDS: ATORVASTATIN CALCIUM 40 MG TAB PO SCH (09:16)
[2017-05-02] MEDS: ASPIRIN EC 325 MG TAB PO SCH (09:18)
[2017-05-02] MEDS: CARVEDILOL 3.125 MG TAB PO SCH ×2 (09:21→16:58)
[2017-05-02] MEDS ORDERED: INSULIN GLARGINE 100 UNITS/ML UNIT SC SCH (09:59)
--- NOTE | 2017-05-02 09:59 | HOSPPROG ---
Hospitalist Progress Note Assessment/Plan: # STEMI s/p DESx2 to LAD - cont asa/plavix/statin - coreg and lisino started # cardiogenic shock - resolved, off dopamine # DM2 - A1c 12.9%; glucs better but still elevated - incr glargine 20/10 -> 20/20U -> 25/25 -> 25/30 - cont SSI Subjective: dizziness better; no CP; eating normally Objective: Vital Signs Temp Pulse Resp BP Pulse Ox 36.8 C 79 16 100/59 L 94 05/02/17 08:00 05/02/17 08:00 05/02/17 08:00 05/02/17 08:00 05/02/17 08:00 Laboratory Results 05/02/17 05:25 05/02/17 05:25 05/01/17 05/02/17 05/03/17 05:59 05:59 05:59 Intake Total 1757 1085 Output Total 650 Balance 1107 1085 PT 14.7 SEC (12.0-15.0) 05/02/17 05:25 INR 1.13 (0.83-1.16) 05/02/17 05:25 high risk with recent STEMI - Physical Exam Constitutional: no apparent distress, appears nourished Cardiovascular: regular rate and rhythym, no murmur, rub, or gallop Respiratory: no respiratory distress, no rales or rhonchi, clear to auscultation Gastrointestinal: soft, non-tender abdomen, no palpable masses ICD10 Worksheet Patient Problems: Problems Problem Status Onset STEMI (ST elevation myocardial infarction) Acute
[2017-05-02] MEDS: LISINOPRIL 2.5 MG TAB PO SCH (10:12)
[2017-05-02] MEDS ORDERED: INSULIN GLARGINE 100 UNITS/ML UNIT SC ONE (10:47)
--- NOTE | 2017-05-02 11:56 | PDCARPN ---
Cardiology Progress Note Assessment/Plan: Assessment: 1. Acute anterior stemi 2. Ischemic CM with LVEF 35% 3. Hypotension (on dopamine) 4. IDDM Plan: -Continue currrent medications -OK to transfer to [facility] -Pt and family questions answered via [facility] tube cutter 05/01/17 10:20 05/02/17 11:54 Subjective: Bao is feeling well today. No complaints of chest pain, sob, palpitations, dizziness,lightheadedness, pnd, orthopnea or edema. He remain in NSR with no evidence of ectopy. He is now off of Dopamine since approx 5 AM. Reviewed/Discussed With: multidisciplinary team Objective: Vital Signs (8 Hrs) Temp Pulse Resp BP Pulse Ox 05/02/17 10:00 86 18 102/69 05/02/17 08:00 36.8 C 79 16 100/59 L 94 05/02/17 05:00 36.9 C 92 12 106/57 L 94 05/02/17 04:00 78 12 100/56 L 94 Intake/Output (24 Hrs) 05/01/17 05/02/17 05/03/17 05:59 05:59 05:59 Intake Total 1757 1085 Output Total 650 Balance 1107 1085 Intake: Oral (ml) 1150 900 IV Intake (ml) 500 IV Infused (ml) 107 185 DOPamine 400 mg In D5w 107 185 250 ml @ 5 MG/KG/MIN 53642.6 mls/hr IV CONT [facility] Rx#:[id number] Output: Urine (ml) 650 Urinal 650 Other: Number of Voids Urinal 3 1 Result Diagrams: 05/02/17 05:25 05/02/17 05:25 Cardiac Labs: Cardiac Lab Results (72 Hrs) 04/30/17 04/30/17 04/30/17 15:45 14:45 05:00 CK-MB (CK-2) Fraction REJ 91.90 H Troponin I 22.400 H REJ 35.900 H 04/29/17 21:25 CK-MB (CK-2) Fraction 90.60 H Troponin I 30.300 H - Physical Exam Ears, Nose, Mouth, Throat: moist mucous membranes Cardiovascular: regular rate and rhythm, no murmurs, no rubs, no gallops Respiratory: clear to auscultate bilat Neurologic: AAOx3, CN II-XII grossly intact Psychiatric: cooperative, interactive, following commands ICD10 Worksheet Patient Problems: Problems Problem Status Onset STEMI (ST elevation myocardial infarction) Acute
--- NOTE | 2017-05-02 16:37 | ASMTCMCOM ---
CM Note CM Note Notes: Pt had cardiogenic shock and was in ICU, now returned to PCU. CM will follow in case there is a change to the current plan for DC with no needs. Date Signed: 05/02/2017 04:36 PM Electronically Signed By:Nora Moon LCSW
[2017-05-02] MEDS: WARFARIN SODIUM 5 MG TAB PO SCH (16:58)
[2017-05-02] MEDS: NITROGLYCERIN 0.4 MG BTL SL PRN ×2 (23:09→23:19)
--- NOTE | 2017-05-02 23:21 | CPEKG ---
Heart Rate: 89 RR Interval: 674 P-R Interval: 164 QRSD Interval: 74 QT Interval: 352 QTC Interval: 429 P [place]: 54 QRS [place]: 92 T Wave [place]: 126 EKG Severity - ABNORMAL ECG - EKG Impression: SINUS RHYTHM EKG Impression: ANTERIOR INFARCT, AGE INDETERMINATE Electronically Signed By: Bon Carrera 03-May-2017 07:33:00
[2017-05-02] MEDS ORDERED: GUAIFENESIN/DM 10 ML UDCUP PO PRN (23:35)
[2017-05-02] MEDS ORDERED: CEPACOL LOZENGE PO PRN (23:35)
[2017-05-03 04:13] LABS: INR 1.26 (0.83-1.16)
--- NOTE | 2017-05-03 08:52 | CPEKG ---
Heart Rate: 73 RR Interval: 822 P-R Interval: 168 QRSD Interval: 76 QT Interval: 388 QTC Interval: 428 P [place]: 68 QRS [place]: 101 T Wave [place]: 135 EKG Severity - ABNORMAL ECG - EKG Impression: SINUS RHYTHM EKG Impression: PROBABLE ANTEROSEPTAL INFARCT, AGE INDETERM EKG Impression: LATERAL LEADS ARE ALSO INVOLVED Electronically Signed By: Bon Carrera 05-May-2017 07:57:45
--- NOTE | 2017-05-03 08:57 | HOSPPROG ---
Hospitalist Progress Note Assessment/Plan: # STEMI s/p DESx2 to LAD - cont asa/plavix/statin - coreg and lisino started # dyspnea - may be related to bronchitis? defer to cards on further w/u # cardiogenic shock - resolved, off dopamine # DM2 - A1c 12.9%; glucs better but still elevated - hypoglycemic overnight - will decrease glucs slightly today - glargine 20/10 -> 20/20U -> 25/25 -> 25/30 -> 20/25 - cont SSI Subjective: breathing feels worse today; +cough Objective: Vital Signs Temp Pulse Resp BP Pulse Ox 36.5 C 74 18 97/58 L 96 05/03/17 08:00 05/03/17 08:00 05/03/17 08:00 05/03/17 08:00 05/03/17 08:00 Laboratory Results 05/02/17 05:25 05/02/17 05:25 05/02/17 05/03/17 05/04/17 05:59 05:59 05:59 Intake Total 1085 1370 Balance 1085 1370 PT 16.0 SEC (12.0-15.0) H 05/03/17 03:25 INR 1.26 (0.83-1.16) H 05/03/17 03:25 ecg personally reviewed - Physical Exam Constitutional: no apparent distress, appears nourished Cardiovascular: regular rate and rhythym, no murmur, rub, or gallop, systolic murmur Respiratory: no respiratory distress, no rales or rhonchi, clear to auscultation Gastrointestinal: normoactive bowel sounds, soft, non-tender abdomen, no palpable masses ICD10 Worksheet Patient Problems: Problems Problem Status Onset STEMI (ST elevation myocardial infarction) Acute
[2017-05-03] MEDS: INSULIN GLARGINE 100 UNITS/ML UNIT SC SCH (09:11)
[2017-05-03] MEDS: LISINOPRIL 2.5 MG TAB PO SCH (09:14)
[2017-05-03] MEDS: ASPIRIN EC 325 MG TAB PO SCH (09:16)
[2017-05-03] MEDS: CARVEDILOL 3.125 MG TAB PO SCH ×2 (09:16→19:06)
[2017-05-03] MEDS: CLOPIDOGREL BISULFATE 75 MG TAB PO SCH (09:16)
[2017-05-03] MEDS: INSULIN LISPRO 100 UNIT/1 ML VIAL STANDARD SC SCH ×3 (09:17→17:15)
[2017-05-03] MEDS: ATORVASTATIN CALCIUM 40 MG TAB PO SCH (09:17)
--- NOTE | 2017-05-03 12:30 | PDCARPN ---
Cardiology Progress Note Assessment/Plan: Assessment: 1. Acute anterior stemi 2. Ischemic CM with LVEF 35% 3. Hypotension (on dopamine) 4. New onset of sob 5. Episode of chest pain Plan: -CXR: PA and Lateral -Labwork: BNP -Continue Aspirin 325 mg daily -Continue plavix 75 mg dialy -Continue Coreg 3.125 mg po bid -Continue Lisinopril 2.5 mg daily -Pt and family questions answered via [facility] intelligence specialist 05/03/17 12:28 Subjective: Bao had an episode of chest pain with radiation to the left arm that lasted for approximately one hour yesterday. He did received NTG x 2 which resolved his discomfort. He also describes new onset of shortness of breath. He denies pnd, orthopnea or LE edema. No nasuea, vomiting or diaphoresis. No events on telemetry. He is currently pain free. Reviewed/Discussed With: family, hospitalist, multidisciplinary team Time Spent With Patient: 25 min Objective: Vital Signs (8 Hrs) Temp Pulse Resp BP Pulse Ox 05/03/17 08:00 36.5 C 74 18 97/58 L 96 Intake/Output (24 Hrs) 05/02/17 05/03/17 05/04/17 05:59 05:59 05:59 Intake Total 1085 1370 Balance 1085 1370 Intake: Oral (ml) 900 1370 IV Infused (ml) 185 DOPamine 400 mg In D5w 185 250 ml @ 5 MG/KG/MIN 79820.6 mls/hr IV CONT [facility] Rx#:[id number] Other: Intake Quantity Yes Sufficient Number of Voids Toilet 1 Urinal 1 Result Diagrams: 05/02/17 05:25 05/02/17 05:25 Cardiac Labs: Cardiac Lab Results (72 Hrs) 04/30/17 04/30/17 15:45 14:45 CK-MB (CK-2) Fraction REJ Troponin I 22.400 H REJ ICD10 Worksheet Patient Problems: Problems Problem Status Onset STEMI (ST elevation myocardial infarction) Acute
[2017-05-03] MEDS: WARFARIN SODIUM 5 MG TAB PO SCH (16:51)
[2017-05-03 19:41] VITALS: RESP 16
[2017-05-03] MEDS ORDERED: INSULIN GLARGINE 100 UNITS/ML UNIT SC SCH (21:00)
[2017-05-04 04:20] LABS: INR 1.42 (0.83-1.16); PROTIME(PATIENT) 17.5 SEC (12.0-15.0)
[2017-05-04] MEDS: INSULIN LISPRO 100 UNIT/1 ML VIAL STANDARD SC SCH ×2 (07:39→11:38)
--- NOTE | 2017-05-04 08:34 | PDCARPN ---
Cardiology Progress Note Chief Complaint: No new complaints Assessment/Plan: Assessment: 1. Acute anterior stemi 2. Ischemic CM with LVEF 35% 3. Hypotension 4. IDDM Plan: -Plan for discharge home today -Will need input from Medicine regarding final Insulin dosing prior to discharge -Will arrange follow up with Dr. Constantine Cameron at [facility] -Will arrange for coumadin clinic at [facility] -Pt to be enrolled in Cardiac Rehab -Continue Aspirin 81 mg daily -Continue plavix 75 mg dialy -Continue Coreg 3.125 mg po bid -Continue Atorvastatin 40 mg daily -Stop Lisinopril 2.5 mg daily secondary to hypotension and dry cough -Pt questions answered via [facility] customer service professional 05/04/17 08:34 Subjective: Bao is feeling well this morning. He did ambulate around 2West yesterday without any complaints of chest pain, chest pressure, Left arm pain or complaints of sob. He does states he has mild, dry non productive cough. He denies pnd, orthopnea or LE edema. No palpitatons,dizziness, lightheadedness or syncope. No events on telemetry. His BP remains low with SBP in the mid 90's to 106 over 50-60's. Will discontinue Lisinopril today. Reviewed/Discussed With: hospitalist, multidisciplinary team Time Spent With Patient: 30 min Objective: Vital Signs (8 Hrs) Temp Pulse Resp BP Pulse Ox 05/04/17 07:40 36.4 C 83 16 92/57 L 90 L 05/04/17 04:00 36.5 C 81 16 105/60 94 Intake/Output (24 Hrs) 05/03/17 05/04/17 05/05/17 05:59 05:59 05:59 Intake Total 1370 1250 Balance 1370 1250 Intake: Oral (ml) 1370 1250 Other: Intake Quantity Yes Sufficient Number of Voids Toilet 1 1 Result Diagrams: 05/02/17 05:25 05/04/17 04:05 - Physical Exam Constitutional: WDWN Ears, Nose, Mouth, Throat: moist mucous membranes Cardiovascular: regular rate and rhythm, no murmurs, no rubs, no gallops Respiratory: clear to auscultate bilat Skin: no rashes Musculoskeletal: no muscular tenderness Neurologic: AAOx3, CN II-XII grossly intact Psychiatric: cooperative, interactive, following commands ICD10 Worksheet Patient Problems: Problems Problem Status Onset STEMI (ST elevation myocardial infarction) Acute
[2017-05-04] MEDS: INSULIN GLARGINE 100 UNITS/ML UNIT SC SCH (08:37)
[2017-05-04] MEDS: ATORVASTATIN CALCIUM 40 MG TAB PO SCH (08:37)
[2017-05-04] MEDS: CARVEDILOL 3.125 MG TAB PO SCH (08:37)
[2017-05-04] MEDS: CLOPIDOGREL BISULFATE 75 MG TAB PO SCH (08:37)
[2017-05-04] MEDS: LISINOPRIL 2.5 MG TAB PO SCH (08:38)
[2017-05-04] MEDS ORDERED: ASPIRIN EC 81 MG TAB PO SCH (09:00)
[2017-05-04 11:20] VITALS: BP 105/62; PULSE 75; TEMP 98.2; O2SAT 97
--- NOTE | 2017-05-04 13:34 | ASMTLACE ---
LACE Length of stay for Answers: 4-6 days current admission Acuity / Level of Answers: Yes Care: Did the patient have an inpatient admission? Comorbidities - select Answers: Diabetes (uncontrolled or all that apply controlled) # of Emergency department Answers: 1-2 visits in the last 6 months Score: 9 Date Signed: 05/04/2017 01:33 PM Electronically Signed By:Cassandra Kim RN
--- NOTE | 2017-05-04 13:38 | GDS ---
[f rep st] DISCHARGE SUMMARY INDICATION FOR ADMISSION: Acute anterior ST-segment elevation myocardial infarction. HOSPITAL COURSE: The patient is a pleasant 57-year-old gentleman, with a known history of diabetes, who developed an acute onset of chest pain with radiation down his left arm at approximately 8 a.m. on the morning of April 29, 2017. He was brought to [facility] Emergency Department by his boss. He was found to have acute anterior ST-segment elevation myocardial infarction and was brought urgently to the cardiac catheterization lab. Left heart catheterization demonstrated 100% occlusion of the proximal LAD. There was mild luminal irregularities within the circumflex, and right coronary artery was unremarkable. He underwent successful PCI x2 to the proximal LAD. He underwent balloon angioplasty to the first diagonal branch. He tolerated the procedure well. Postoperatively, he was transferred to the ICU. He remained in the ICU until May 02, 2017, when he was transferred to [facility] telemetry floor. His course was complicated by hypotension, requiring dopamine administration. He was gradually able to be weaned off dopamine and transferred to [facility] on May 02. He did develop some chest pain with radiation down his left arm on May 03 , in the morning while going for a walk. The symptoms resolved rapidly with rest. He had no new EKG changes. He had no further symptoms. On the morning of the , he underwent a walk again without further symptoms. He remained hemodynamically stable throughout the course of his hospitalization. His blood pressure remained low but without symptoms, with systolics ranging from the mid 90s to 106 with diastolics primarily in the 60s and 50s. He had no events on telemetry. During this hospitalization, he was consulted by Hospitalist Service. This was primarily for glucose management in the setting of poorly controlled insulin- dependent diabetes. DATA DURING HOSPITALIZATION: Diagnostic left heart catheterization with 100% occlusion of the proximal LAD, with successful PCI x2 to the LAD and balloon angioplasty to the first diagonal branch. No significant coronary disease in his RCA or circumflex vessel. Complete 2D echocardiogram demonstrated anterior septal and apical hypokinesis with LVEF of 35% to 40%. As a result of acute anterior infarction and evidence of apical hypokinesis, he was started on warfarin in conjunction with aspirin and Plavix to reduce LV thrombus formation in the setting of apical hypokinesis. Chest x-ray performed on May 03 demonstrated no evidence of pulmonary edema. LAB WORK AT TIME OF DISCHARGE: INR at time of discharge of 1.42. Sodium of 141 , potassium 4.2, chloride 106, bicarb 24, BUN 12, creatinine 0.5. N-terminal proBNP 824. EXAM AT TIME OF DISCHARGE: VITAL SIGNS: Blood pressure 105/62, heart rate 75 in sinus rhythm, respiratory rate of 16, oxygen saturation 97% on 3 L nasal cannula. Temperature 36.8. GENERAL: He is awake, alert, oriented, appropriate , in no apparent distress. NECK: There is no evidence of or carotid bruits. LUNGS: Clear to auscultation bilaterally. CARDIAC: S1, S2. Regular rate and rhythm. No murmurs, rubs, or gallops. There is no evidence of cyanosis, clubbing, or edema. MEDICATIONS AT TIME OF DISCHARGE: 1. Aspirin 81 mg daily. 2. Plavix 75 mg daily. 3. Coumadin 5 mg daily, with goal INR between 2 and 3. 4. Atorvastatin 40 mg daily. 5. Levemir insulin 20 units subcu daily. 6. NovoLog 10 units subcu daily, a.c. PLAN AT TIME OF DISCHARGE: 1. Patient will be discharged home with his family. 2. The patient will be scheduled for INR check in [facility] on May, at 2:15. 3. Patient is scheduled for followup with Dr. Constantine Cameron on Sunday, May 07, 2017 at 2 p.m. at [facility]. Instructions have been provided of the avionics test technician. 45 minutes spent coordinating patient care. /[id number]/MODL MTDD
--- NOTE | 2017-05-04 16:43 | ASDISCHSUM ---
Discharge Information Plan Status:Home with No Needs Medically Cleared to Leave:05/03/2017 Discharge Date:05/04/2017 02:36 PM CM D/C Disposition:Home, Routine, Self-Care ADT D/C Disposition:Home, Routine, Self-Care Projected Discharge Date:05/04/2017 02:36 PM Transportation at D/C: Discharge Delay Reason: Follow-Up Date:05/04/2017 02:36 PM Discharge Slot: Final Diagnosis: Placement Information Patient Contact Information Contact Name:ELIGIO Relationship: Address:[address] [place] [address] Work Phone: City:[place] Alternate Phone: State/Zip Code:[place] [address] Email: Financial Information Financial Class:Self-Pay Primary Plan Desc:SELF PAY Primary Plan Number: Secondary Plan Desc: Secondary Plan Number: Assessment Information [facility] CM Progress Note CM Note CM Note Notes: 04/30/2017 Case Management Note Pt admitted for treatment of STEMI. There are no case management d/c needs identified d/t pt age, marital status, employment status and activity levels prior to admission. There is a Cardiac Rehab eval ordered but no PT evals. Case Management d/c poc; anticipating independent with family support and follow up as directed, likely cardiac rehab as an outpatient. Case Management available if needs change. Date Signed: 04/30/2017 04:33 PM Electronically Signed By:Cassandra Kim RN [facility] CM Progress Note CM Note CM Note Notes: Pt had cardiogenic shock and was in ICU, now returned to PCU. CM will follow in case there is a change to the current plan for DC with no needs. Date Signed: 05/02/2017 04:36 PM Electronically Signed By:Nora Moon LCSW [facility] Length of stay for Answers: 4-6 days current admission Acuity / Level of Answers: Yes Care: Did the patient have an inpatient admission? Comorbidities - select Answers: Diabetes (uncontrolled or all that apply controlled) # of Emergency department Answers: 1-2 visits in the last 6 months Score: 9 Date Signed: 05/04/2017 01:33 PM Electronically Signed By:Cassandra Kim RN Intervention Information
== END 2017-05-04 14:36 | disposition home or self-care (01) | DRG 247 ==
LOC: F2N 16:24 → F2W 05-02 14:35
PROVIDERS: ADMIT Internal Medicine Interventional Cardiology; ATTEND Internal Medicine Interventional Cardiology
PROC: B2151ZZ Fluoroscopy of Left Heart using Low Osmolar Contrast (ICD-10-PCS; 2017-04-29)
PROC: 4A023N7 Measurement of Cardiac Sampling and Pressure, Left Heart, Percutaneous Approach (ICD-10-PCS; 2017-04-29)
PROC: B2111ZZ Fluoroscopy of Multiple Coronary Arteries using Low Osmolar Contrast (ICD-10-PCS; 2017-04-29)
PROC: 027035Z Dilation of Coronary Artery, One Artery with Two Drug-eluting Intraluminal Devices, Percutaneous Approach (ICD-10-PCS; principal; 2017-04-30)
PROC: 02HV33Z Insertion of Infusion Device into Superior Vena Cava, Percutaneous Approach (ICD-10-PCS; 2017-05-03)
DX: I21.02 ST elevation (STEMI) myocardial infarction involving left anterior descending coronary artery (principal); E11.9 Type 2 diabetes mellitus without complications; Z79.4 Long term (current) use of insulin; I25.5 Ischemic cardiomyopathy
CPT/HCPCS: 82947-QW; C1725; C1751; C1760; C1769; C1874; C1887; C9606; J0583; J1265; J1327; J1644; J1815; J2250; J2405; J3010; Q9967

== ENCOUNTER 2017-06-11 05:22 | Emergency (ER) | payer MEDICAID, OTHER ==
--- NOTE | 2017-06-11 05:36 | EDPHY ---
H & P Stated Complaint: NOSE BLEED Time Seen by Provider: 06/11/17 05:30 HPI/ROS: HPI CHIEF COMPLAINT: Epistaxis HISTORY OF PRESENT ILLNESS: Patient is a very pleasant 57-year-old male, in April he had ST elevation AR he is currently on aspirin and Plavix and Coumadin. He is unsure when his last INR was. Presents emergency room with a left Alanis epistaxis since 11:00 p.m. Last night. It has been ongoing since 11: 00 p.m.. Sometimes able to get it to stop. It has been a light trickle left Nare. Anterior. No posterior. Denies any chest pain or shortness of breath or cough. Denies hemoptysis or blood in his stool. Past Medical History: Coronary artery disease with recent stents, ST-elevation AR, diabetes Past Surgical History: PCI Social History: Denies drugs alcohol tobacco. Family History: Noncontributory ROS REVIEW OF SYSTEMS: A comprehensive 10 point review of systems is otherwise negative aside from elements mentioned in the history of present illness. Exam Constitutional triage nursing summary reviewed, vital signs reviewed, awake/ alert. Eyes normal conjunctivae and sclera, EOMI, PERRLA. HENT left Nare fresh blood present, anteriorly, right Nare normal inspection, atraumatic, moist mucus membranes, no epistaxis, neck supple/ no meningismus, no raccoon eyes. Posterior pharynx no evidence of blood. Respiratory clear to auscultation bilaterally, normal breath sounds, no respiratory distress, no wheezing. Cardiovascular rate normal, regular rhythm, no murmur, no edema, distal pulses normal. Gastrointestinal soft, non-tender, no rebound, no guarding, normal bowel sounds, no distension, no pulsatile mass. Genitourinary no CVA tenderness. Musculoskeletal no midline vertebral tenderness, full range of motion, no calf swelling, no tenderness of extremities, no meningismus, good pulses, neurovascularly intact. Skin pink, warm, & dry, no rash, skin atraumatic. Neurologic awake, alert and oriented x 3, AAOx3, moves all 4 extremities equally, motor intact, sensory intact, CN II-XII intact, normal cerebellar, normal vision, normal speech. Psychiatric normal mood/affect. Heme/Lymph/Immune no lymphadenopathy. Differential Diagnosis: Includes but is not limited to in a particular order epistaxis, epistaxis from combination of aspirin, Plavix, Coumadin. Supratherapeutic INR. Medical Decision Making: Plan for this patient will give squirts of Afrin, and apply nasal cramp. Re-evaluate. Additionally will check INR as he has not had checked in a while does not know what it is. Make sure it is not supratherapeutic. Re-evaluation: 0616AM: Patient had Afrin placed in the left nostril. He has good hemostasis. There has been no recurrence of bleed sun here in the emergency room. INR is noted to be 2.65. I will allow her to be discharged. He understands return precautions. Source: Patient - Personal History Current Tetanus Diphtheria and Acellular Pertussis (TDAP): Yes Tetanus Vaccine Date: 2 yrs ago - Medical/Surgical History Hx Asthma: No Hx Chronic Respiratory Disease: No Hx Diabetes: Yes Hx Cardiac Disease: Yes Hx Renal Disease: No Hx Cirrhosis: No Hx Alcoholism: No Hx HIV/AIDS: No Hx Splenectomy or Spleen Trauma: No Other PMH: IDDM, HEART ATTACK ON COUMADIN, HEART STENTS PLACED APR 2017 - Social History Smoking Status: Never smoked Constitutional: Initial Vital Signs Temperature (C) 36.4 C 06/11/17 05:28 Heart Rate 75 06/11/17 05:28 Respiratory Rate 16 06/11/17 05:28 Blood Pressure 124/64 H 06/11/17 05:28 O2 Sat (%) 96 06/11/17 05:28 O2 Delivery Mode Room Air Allergies/Adverse Reactions: No Known Allergies Allergy (Verified 05/19/16 20:50) Home Medications: Medication Instructions Recorded Insulin Detemir [Levemir Flextouch] 20 unit SQ DAILY 10/08/13 Insulin Aspart [Novolog Flexpen] 10 unit SQ DAILYAC 05/19/16 Herbals/Supplements -Info Only 1 ea PO DAILY 04/29/17 Aspirin EC [Aspirin EC 81 mg (*)] 81 mg PO DAILY tab 05/04/17 Atorvastatin Calcium [Lipitor 40 40 mg PO DAILY #30 tab 05/04/17 mg (*)] Carvedilol [Coreg (*)] 3.125 mg PO BIDMEAL #60 tab 05/04/17 Clopidogrel Bisulfate [Plavix (*)] 75 mg PO DAILY #90 tab 05/04/17 Insulin Detemir [Levemir Flextouch] 20 unit SQ HS #1 insuln.pen 05/04/17 Warfarin Sodium [Coumadin 5MG (*)] 5 mg PO DAILY16 #30 tab 05/04/17 Medical Decision Making - Data Points Laboratory Results: 06/11/17 05:55 PT 28.2 SEC H SEC (12.0-15.0) INR 2.65 H (0.83-1.16) APTT 41.8 SEC H SEC (23.0-38.0) Medications Given: Discontinued Medications Oxymetazoline HCl (Afrin Nasal [place]) 2 sprays EACHNARE EDNOW ONE Stop: 06/11/17 05:48 Last Admin: 06/11/17 06:07 Dose: Not Given Silver Nitrate/Potassium Nitrate (Silver Nitrate Applicator) 1 each TP EDNOW ONE Stop: 06/11/17 05:49 Last Admin: 06/11/17 06:07 Dose: Not Given Departure - Departure Disposition: Home, Routine, Self-Care Clinical Impression: Epistaxis Condition: Good Instructions: Nosebleed (ED) Additional Instructions: 1. Return emergency room if develops worsening epistaxis or nose bleed. 2. Apply direct pressure for 20-30 minutes holding her head forward if he continues to bleed. 3. If you are unable to get it to stop return to the emergency room. Referrals: NONE *PRIMARY CARE P,. [Primary Care Provider] - As per Instructions
[2017-06-11] MEDS ORDERED: OXYMETAZOLINE 30 ML NASAL SPRAY ONE (05:41)
[2017-06-11] MEDS ORDERED: SILVER NITRATE APPLICATOR 1 APPL TP ONE ×2 (05:44→05:48)
[2017-06-11] MEDS ORDERED: OXYMETAZOLINE 30 ML NASAL SPRAY EACHNARE ONE (05:47)
[2017-06-11 06:12] LABS: INR 2.65 (0.83-1.16); PROTIME(PATIENT) 28.2 SEC (12.0-15.0)
[2017-06-11 06:57] VITALS: BP 125/82; PULSE 87; RESP 18; TEMP 97.9; O2SAT 98
== END 2017-06-11 06:57 | disposition home or self-care (01) ==
DX: R04.0 Epistaxis (principal); I25.10 Atherosclerotic heart disease of native coronary artery without angina pectoris; I25.2 Old myocardial infarction; E11.9 Type 2 diabetes mellitus without complications; Z79.01 Long term (current) use of anticoagulants; Z79.4 Long term (current) use of insulin; Z79.82 Long term (current) use of aspirin; Z95.5 Presence of coronary angioplasty implant and graft

== ENCOUNTER 2017-11-22 | Emergency (ER) | payer OTHER | END 2017-11-22 22:16 | disposition home or self-care (01) ==

== ENCOUNTER 2018-04-06 21:42 | Inpatient (IN) | payer OTHER ==
[2018-04-06] MEDS ORDERED: NS 1,000 ML IV ONE (21:54)
[2018-04-06] MEDS ORDERED: ASPIRIN 81 MG CHEWABLE TAB PO ONE (21:56)
[2018-04-06] MEDS ORDERED: ASPIRIN 81 MG CHEWABLE TAB ONE (21:56)
[2018-04-06] MEDS ORDERED: NITROGLYCERIN 0.4 MG BTL SL ONE (22:08)
--- NOTE | 2018-04-06 22:11 | EDPHY ---
H & P Stated Complaint: CP radiates to L arm x1 hour Time Seen by Provider: 04/06/18 22:08 HPI/ROS: CHIEF COMPLAINT: Chest pain. HISTORY OF PRESENT ILLNESS: 58-year-old male, Japanese-speaking only a deaf interpreter was used for history review of systems presents emergency room left- sided chest discomfort. Describes a dull ache pressure sensation. Radiates to his left arm with numbness and tingling down his left arm. He does have a history of coronary artery disease with 2 stents in his LAD from 100% occlusion. This was placed in April. Patient presents emergency room by private vehicle with nausea and chest pressure. Upon arrival he had an EKG that shows slight ST elevation to 3 AVF. Due to this acute ischemic change on his EKG I have consulted Dr. Castaneda. Past Medical History: Coronary artery disease, diabetes 2 stents LAD. Past Surgical History: PTCA with 2 stents. Social History: Denies drugs alcohol tobacco. Family History: Denies ROS REVIEW OF SYSTEMS: 10 Systems were reviewed and negative with the exception of the elements mentioned in the history of present illness. Exam Constitutional nontoxic, no acute distress, triage nursing summary reviewed, vital signs reviewed, awake/alert. Eyes normal conjunctivae and sclera, EOMI, PERRLA. HENT normal inspection, atraumatic, moist mucus membranes, no epistaxis, neck supple/ no meningismus, no raccoon eyes. Respiratory clear to auscultation bilaterally, normal breath sounds, no respiratory distress, no wheezing. Cardiovascular rate normal, regular rhythm, no murmur, no edema, distal pulses normal. Gastrointestinal soft, non-tender, no rebound, no guarding, normal bowel sounds, no distension, no pulsatile mass. Genitourinary no CVA tenderness. Musculoskeletal no midline vertebral tenderness, full range of motion, no calf swelling, no tenderness of extremities, no meningismus, good pulses, neurovascularly intact. Skin pink, warm, & dry, no rash, skin atraumatic. Neurologic awake, alert and oriented x 3, AAOx3, moves all 4 extremities equally, motor intact, sensory intact, CN II-XII intact, normal cerebellar, normal vision, normal speech. Psychiatric normal mood/affect. Heme/Lymph/Immune no lymphadenopathy. Differential Diagnosis: Differential diagnosis includes but is not limited to: ACS, atypical chest pain, pneumothorax, pneumonia, pulmonary embolism, aortic dissection, congestive heart failure, tumor, musculoskeletal pain, esophageal pain, GERD, peptic ulcer disease, pancreatitis Medical Decision Making: Plan for this patient IV establishment with radiographer cardiac catheterization, obtain EKG, troponin, chest x-ray, rule out acute coronary syndrome Re-evaluation: EKG interpretation by me on record in [employer] system. Impression time of EKG 2158, this is sinus rhythm rate of [address] elevation to 3 AVF, Q- waves V1 V2 V3. When I compare this to his old EKG the ST elevation seen inferior leads to 3 AVF is somewhat new the Q-waves are noted on his previous EKGs in V1 V2 V3. Given the patient's having chest pain pressure left arm numbness and tingling and ST elevation very subtle in inferior leads I have contacted cardiology Dr. Castaneda. We discussed the case in detail plan will be for cardiac catheterization. The patient's cardiac risk factors include his age, diabetes, coronary artery disease with stents 2229: Dr. Castaneda at bedside evaluate the patient. Patient given full-dose aspirin, nitroglycerin. Nitroglycerin greatly improved his chest discomfort. deaf interpreter at bedside Dr. Castaneda has seen and evaluated the patient plan to go to cardiac catheterization. Source: Patient - Personal History Current Tetanus/Diphtheria Vaccine: Yes Tetanus Vaccine Date: 2 yrs ago - Medical/Surgical History Hx Asthma: No Hx Chronic Respiratory Disease: No Hx Diabetes: Yes Hx Cardiac Disease: Yes Hx Renal Disease: No Hx Cirrhosis: No Hx Alcoholism: No Hx HIV/AIDS: No Hx Splenectomy or Spleen Trauma: No Other PMH: IDDM, HEART ATTACK ON COUMADIN, HEART STENTS PLACED APR 2017 - Social History Smoking Status: Never smoked Constitutional: Initial Vital Signs Temperature (C) 36.7 C 04/06/18 21:44 Heart Rate 80 04/06/18 21:44 Respiratory Rate 18 04/06/18 21:44 Blood Pressure 128/70 H 04/06/18 21:44 O2 Sat (%) 96 04/06/18 21:44 O2 Delivery Mode Nasal Cannula O2 (L/minute) 2 Allergies/Adverse Reactions: No Known Allergies Allergy (Verified 05/19/16 20:50) Home Medications: Medication Instructions Recorded Insulin Detemir [Levemir Flextouch] 30 unit SQ DAILY 10/08/13 Aspirin EC [Aspirin EC 81 mg (*)] 81 mg PO DAILY tab 05/04/17 Carvedilol [Coreg (*)] 3.125 mg PO BIDMEAL #60 tab 05/04/17 Clopidogrel Bisulfate [Plavix (*)] 75 mg PO DAILY #90 tab 05/04/17 Ascorbic Acid [Vitamin C 500 mg 1,000 mg PO DAILY 04/07/18 (*)] Atorvastatin Calcium [Lipitor 40 80 mg PO DAILY 04/07/18 mg (*)] Insulin Detemir [Levemir] 20 unit SQ HS 04/07/18 Metformin HCl [Metformin 1000 mg] 1,000 mg PO BIDMEAL 04/07/18 Medical Decision Making - Data Points Laboratory Results: Laboratory Results 04/06/18 22:00 04/06/18 22:00 Medications Given: Discontinued Medications Aspirin (Aspirin) 324 mg PO EDNOW ONE Stop: 04/06/18 21:57 Last Admin: 04/06/18 21:57 Dose: 324 mg Atorvastatin Calcium (Lipitor) 40 mg PO DAILY [facility] Stop: 10/04/18 08:59 Last Admin: 04/07/18 09:47 Dose: 40 mg Atorvastatin Calcium (Lipitor) 40 mg PO ONCE ONE Stop: 04/07/18 10:46 Last Admin: 04/07/18 11:10 Dose: Not Given Carvedilol (Coreg) 3.125 mg PO BIDMEAL [facility] Stop: 10/04/18 07:59 Last Admin: 04/07/18 09:48 Dose: 3.125 mg Sodium Chloride (Ns) 1,000 mls @ 0 mls/hr IV EDNOW ONE; Wide Open PRN Reason: Protocol Stop: 04/06/18 21:55 Last Admin: 04/06/18 22:08 Dose: 1,000 mls Insulin Glargine (Lantus Syringe) 30 units SC DAILY [facility] Stop: 10/04/18 08:59 Last Admin: 04/07/18 09:47 Dose: 30 units Insulin Human Lispro (Humalog Lispro) 0 unit SC TIDMEAL [facility] PRN Reason: Protocol Stop: 10/04/18 07:59 Last Admin: 04/07/18 09:48 Dose: Not Given Nitroglycerin (Nitrostat) 0.4 mg SL EDNOW ONE Stop: 04/06/18 22:09 Last Admin: 04/06/18 22:12 Dose: 0.4 mg Point of Care Test Results: Chemistry 04/06/18 22:06 POC Troponin I 0.01 ng/mL ng/mL (0.00-0.08) Departure - Departure Disposition: [facility] Inpatient Acute Clinical Impression: Chest pain Qualifiers: Chest pain type: unspecified Qualified Code(s): R07.9 - Chest pain, unspecified STEMI (ST elevation myocardial infarction) Qualifiers: Involved coronary artery: unspecified coronary artery Qualified Code(s): I21.3 - ST elevation (STEMI) myocardial infarction of unspecified site Condition: Fair
[2018-04-06 22:14] LABS: PLATELET COUNT 193 10^3/uL (150-400)
[2018-04-06 22:23] LABS: INR 0.87 (0.83-1.16); PROTIME(PATIENT) 12.1 SEC (12.0-15.0)
[2018-04-06] MEDS ORDERED: IOPAMIDOL (ISOVUE-370) 150 ML BTL IV ONE (22:29)
[2018-04-06] MEDS ORDERED: fentaNYL 100 MCG/2 ML INJ ONE (22:29)
[2018-04-06] MEDS ORDERED: BIVALIRUDIN 250 MG/5 ML VIAL IV ONE (22:29)
[2018-04-06] MEDS ORDERED: MIDAZOLAM 2 MG/2 ML VIAL ONE (22:29)
[2018-04-06] MEDS ORDERED: LIDOCAINE 1% 300 MG/30 ML SDV ONE (22:29)
[2018-04-06] MEDS ORDERED: NITROGLYCERIN 1,500 MCG/15 ML VIAL MISC ONE (22:30)
[2018-04-06 22:36] LABS: CREATINE KINASE 187 IU/L (0-224)
--- NOTE | 2018-04-06 22:40 | CPEKG ---
Test Reason : OPEN Blood Pressure : / mmHG Vent. Rate : 074 BPM Atrial Rate : 074 BPM P-R Int : 167 ms QRS Dur : 080 ms QT Int : 347 ms P-R-T Axes : 060 066 046 degrees QTc Int : 385 ms Sinus rhythm Anteroseptal infarct, old ST elevation, consider inferior injury Confirmed by Bobbi Tinsley ([id number]) on 04/06/2018 10:39:49 PM Referred By: Confirmed By:Bobbi Tinsley
[2018-04-06] MEDS ORDERED: ADENOSINE 90 MG/30 ML VIAL IV ONE (23:15)
[2018-04-06] MEDS ORDERED: NITROGLYCERIN 0.4 MG BTL SL PRN (23:49)
[2018-04-06] MEDS ORDERED: ONDANSETRON 4 MG/2 ML VIAL IVP PRN (23:49)
[2018-04-06] MEDS ORDERED: HYDROCODONE/APAP 5/325 TAB PO PRN (23:49)
[2018-04-06] MEDS ORDERED: OXYCODONE/APAP 5/325 TAB PO PRN (23:49)
[2018-04-06] MEDS ORDERED: ATROPINE SULFATE 1 MG/10 ML SYR IVP PRN (23:49)
--- NOTE | 2018-04-07 | CPIP ---
DATE OF PROCEDURE: 04/06/2018 PROCEDURE: 1. Coronary angiography. 2. Left ventriculography. INDICATION: 1. Known coronary artery disease status post previous stenting of his left anterior descending coron lio artery and angioplasty of his diagonal artery. 2. Chest pain concerning for unstable angina. ACCESS: Patient was prepped and draped in sterile fashion. 1% lidocaine was used to anesthetize the right inguinal region. A 6-[place] Citizen introducer sheath was placed selectively into the right common fe moral artery via modified Seldinger technique. CORONARY ANGIOGRAPHY: A 6-[place] Citizen JL4 was advanced to the left main coronary artery and images obtain ed. The left main coronary artery bifurcated into an LAD and circumflex coronary arteries. The left main coronary artery appeared normal. The left anterior descending coronary artery was stented in t he proximal and mid segments. The previously placed stents are widely patent with mild in-stent rest enosis. The 1st diagonal artery is a [id number] size vessel that branches. The diagonal kena ry had an ostial 70% stenosis present as well as a mid 70% stenosis present. The lesions did not gustavo ear to be significantly changed from his 04/29/2017 films. The circumflex coronary artery had mild l uminal irregularities throughout. There is no stenosis greater than 20%. A 6-[place] Citizen JR4 was advance d to the right coronary artery and images obtained. The right coronary artery is dominant. The righ t coronary artery had a discrete 20% stenosis in the mid vessel and a discrete 30% stenosis in the di stal vessel. LEFT VENTRICULOGRAPHY: A 6-[place] Citizen pigtail catheter was advanced into the left ventricle and images o btained. Left ventricle is normal in size and had mildly reduced systolic function. Estimated eject ion fraction was 50%. Apical hypokinesis was present. The left ventricular end-diastolic pressure w as elevated at 22 mmHg. COMPLICATIONS: None. CONCLUSIONS: 1. Patent LAD stents with mild in-stent restenosis. 2. Intermediate to high-grade disease involving the ostial and mid diagonal artery that is not signi ficantly changed from 04/29/2017. 3. Mildly reduced left ventricular systolic function with an estimated ejection fraction of 50%. Th e apex appears to be mildly hypokinetic. 4. Consider percutaneous coronary intervention of the diagonal artery for symptoms of angina not con trolled with medications. This would likely involve culotte stenting of the left anterior descending coronary artery and diagonal coronary arteries. 5. Will evaluate patient's elevated lipase of 2500 and consider pancreatitis as his primary diagnosi s. /[id number]/MODL
--- NOTE | 2018-04-07 00:10 | GCON ---
DATE OF CONSULTATION: 04/06/2018 CHIEF COMPLAINT: We have been asked by Dr. Clark to evaluate the patient with a chief complaint of chest pain. Patient was in his usual state of health until the evening of admission at approximatel y 8 p.m. when he began to experience symptoms of lower chest pain. The chest pain was associated wit h symptoms of nausea but not vomiting or diaphoresis. The chest discomfort is somewhat similar to hi s previous anginal-type chest pain but not as severe in nature. Patient does have known coronary art tran disease and is status post stenting of his left anterior descending coronary artery and balloon a ngioplasty of his diagonal coronary artery in April of 2017. Patient did well following his percut aneous coronary intervention until the evening of admission. There is no history of orthopnea or PND . PAST MEDICAL HISTORY: 1. Coronary artery disease. 2. Hypertension. 3. Hyperlipidemia. 4. Diabetes mellitus. MEDICATIONS: 1. Aspirin 81 mg daily. 2. Plavix 75 mg daily. 3. Coreg 3.125 mg daily. 4. Atorvastatin 40 mg daily. 5. Insulin. ALLERGIES: No known drug allergies. 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 He does not smoke. FAMILY HISTORY: Noncontributory. REVIEW OF SYSTEMS: Abbreviated review of systems was unremarkable except as noted in HPI. PHYSICAL EXAMINATION: GENERAL: Patient is resting in bed. He appears to be in mild distress. KE LS: Temperature is afebrile. Pulse is 72, blood pressure is 128/85, respiratory rate is 18, SaO2 is 95% on 2 L nasal cannula. HEENT: Normocephalic, atraumatic. Extraocular muscles intact. There ar e lipomatosis deposits on his eyes. NECK: No JVD. LUNGS: Clear to auscultation. CARDIOVASCULAR: Regular rate and rhythm. S1, S2. EXTREMITIES: No clubbing, cyanosis, or edema. NEURO: Patient i s alert and oriented x3. LABORATORY: White blood cell count is 6.96, hemoglobin is 15.7, hematocrit is 46.4, platelet count i s 193. INR is 0.87. Sodium is 136, potassium is 3.9, chloride is 101, CO2 is 27, BUN is 20, creatin ine is 0.5. Glucose is elevated at 156. Troponin within normal limits x1. CPK is 187. Lipase is e levated at 2526. EKG demonstrates sinus rhythm, normal axis, anteroseptal myocardial infarction, sub tle inferior ST-segment elevation. ASSESSMENT AND PLAN: Patient is a 58-year-old gentleman with known coronary artery disease status po st percutaneous coronary intervention of his left anterior descending coronary artery and diagonal co ronary artery in April of 2017, who presents with symptoms of chest pain similar to his previous an ginal-type symptoms. His troponin is within normal limits x1. His EKG is notable for subtle inferio r ST-segment elevation. Of note, patient also has an elevated lipase of 2526. The differential diag nosis would include an acute coronary syndrome but also potentially pancreatitis. Reviewed risks and benefits of cardiac catheterization to further evaluate his condition. We will arrange to have this performed. /[id number]/MODL
[2018-04-07] MEDS ORDERED: D50W 25 GM/50 ML VIAL IVP PRN (00:58)
--- NOTE | 2018-04-07 02:55 | GCON ---
HOSPITALIST CONSULT NOTE DATE OF CONSULTATION: 04/07/2018 Patient's PCP is unlisted. SOURCE: Patient is able to provide history via combatant diver officer. EMR was reviewed and case discussed jerri Castaneda and Dr. Clark. CHIEF COMPLAINT: Chest pain. HISTORY OF PRESENT ILLNESS: This is a very pleasant 58-year-old gentleman who presented to the emerg ency department earlier today with complaints of sudden onset of chest pain. He subsequently underwe nt a cardiac cath, which did not reveal any critical stenosis. No additional intervention was comple faviola, and patient was transferred up to the ICU for postoperative care. We have been consulted to ass ist with further evaluation of the patient's chest pain due to elevated lipase that was noted on init ial laboratory studies. Patient reports that during this episode, he did develop some nausea without vomiting. He denies any fevers but did have some chills. He denies any abdominal pain or epigastri c pain. Denies any associated shortness of breath. He currently denies any abdominal pain or chest pain post cath. REVIEW OF SYSTEMS: 10 systems reviewed and negative, except as noted above. ALLERGIES: No known drug allergies. HOME MEDICATIONS: As available. I did attempt to review these with the patient; however, it is inco mplete as some medications he does not recall what they are or what they are for. Listed as Coumadin . The patient does not know dosing. Levemir 30 units in the morning, 20 units at h.s. Metformin 10 00 mg b.i.d. Tradjenta. He does not use any mealtime insulin. Plavix. Coreg. Atorvastatin. Aspi rin. PAST MEDICAL HISTORY: Significant for diabetes type 2, hyperlipidemia, HTN, CAD with history of sten ts in the LAD. PAST SURGICAL HISTORY: Significant for cardiac cath now x2, otherwise denies. FAMILY HISTORY: Positive for diabetes. No cardiac history. 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 He denies any tobacco, drugs, or alcohol use. He is Hungarian speaking only. CODE STATUS: Full. PHYSICAL EXAM: VITAL SIGNS UPON ARRIVAL TO THE ED: Blood pressure is 128/70, heart rate is 80, resp iratory rate 18, O2 sat 96% on room air, temperature 36.7. CURRENT VITALS AVAILABLE: Blood pressure is 128/85. On bedside bus monitor, systolic blood pressure of 98 up to low 100s. Heart rate in the 70s. Respiratory rate 18. O2 sat is 95% on 2 L by nasal cannula. Temperature 36.7. GENERAL : No acute distress. Very pleasant adult gentleman is lying quietly in bed. His adult mother is at bedside. HEAD: Normocephalic, atraumatic. EYES: Extraocular muscles are grossly intact. Pupils equal, round, decreased reactivity to light bilaterally but symmetric. No scleral icterus or conjunc tival injection. ENT: Mucous membranes appear moist. No oropharyngeal erythema or exudates. Denti tion intact. No nasal discharge. NECK: Supple. Trachea midline. CV: Regular rate and rhythm. S lightly bradycardic without any murmurs, rubs, or gallops appreciated. No chest wall tenderness to p alpation. RESPIRATORY: Unlabored breathing. Lungs clear to auscultation bilaterally without any wh eezes, rales, or rhonchi, but exam is limited as patient is still postprocedure and unable to sit up. ABDOMEN: Positive bowel sounds. Soft, nontender to palpation. No rebound, guarding, or masses ap preciated. : No suprapubic tenderness to palpation. No Dan catheter in place. MUSCULOSKELETAL : Patient with limited exam due to being on bed rest postop, but he is able to move his distal lower extremities. He has dorsalis pedis pulse 1+ bilaterally and 2+ posterior tibial. NEURO: Grossly n onfocal. No facial drooping. Patient is pleasant and cooperative. PSYCH: Affect slightly flat, bu t patient is pleasant and cooperative. Does ask appropriate questions via combatant diver officer. LABORATORY STUDIES: 1. WBC 6.96, H and H are 15.7 and 46.4, MCV 88.7, platelet count is 193, no bands. PT 12.1, INR 0.8 7, PTT 28.4. 2. Sodium is 139, potassium is 3.9, chloride 101, CO2 is 27, anion gap of 8, BUN is 20, creatinine 0 .5, GFR greater than 60, glucose 156, calcium is 9.1, magnesium 1.7, total bili 0.5, conjugated 0.3, ALT is 44, AST is 31, alk phos is 111. CK is 187, CK-MB is 5.40. Troponin initial is 0.01. Total p rotein 6.7, albumin 3.8, lipase is 2526. 3. Chest x-ray image was reviewed by me as well as report. Negative for any acute cardiopulmonary a bnormality. 4. EKG was reviewed me. Patient with normal sinus rhythm. Q-waves in the anteroseptal leads and in ferior leads. ST elevation in lead II, III, and in V2; minimally in V3. No ST depressions. QTc 385 . ASSESSMENT AND PLAN: Pleasant 58-year-old Hungarian-speaking gentleman with a history of coronary kena ry disease, hypertension, hyperlipidemia, diabetes, who presents to the emergency department with com plaints of chest pain. 1. Chest pain. Due to findings of ST elevation with a history of cardiac disease and stents, derick hays was taken emergently to the cardiac photofinishing laboratory worker. It was noted that he had patent stents in left anter ior descending, and the marginal branch had some nonoccluding stenosis, which did not have any interv ention. Patient's chest pain has resolved. He did receive nitroglycerin, pain medications, and pee tion for procedure. Blood pressures are adequate. Additional consideration for patient's chest pain also included pancreatitis due to his elevated lipase. Patient reports that he was experiencing mily e nausea but did not have any vomiting at time of onset of the chest pain. Currently, patient is brianna st pain free. Will continue with additional evaluation of patient's lipase by repeating morning labs , right upper quadrant abdominal ultrasound. The patient without a previous history of cholecystecto my. He denies any alcohol intake. Patient is without any tachycardia or current risk factors for pu lmonary embolism. Cardiology has recommended continuing to cycle cardiac enzymes. 2. Elevated lipase as noted above. 3. Benign essential hypertension. Blood pressure is acceptable at this time, slightly low normal. Continue to monitor. Resume patient's home medications and medications as per Cardiology. 4. Hyperlipidemia. Continue statin. Lipid panel in the morning. 5. Diabetes type 2. Patient reports that he no longer takes a mealtime bolus insulin. Rather, he i s now on 30 units of Levemir in the morning, 20 units in the evening. Metformin 1000 mg twice a day. Tradjenta. The patient currently will be made nothing by mouth, except for some sips and chips pen ding further evaluation of his elevated lipase in setting of lower chest pain. 6. Coronary artery disease. Continue patient's aspirin, Plavix, beta-javi, and management of his comorbidities as noted above. 7. Fluid, electrolyte, nutrition: Patient's blood pressures are acceptable at this time. He will b e allowed sips and chips pending further evaluation of the pancreas. Electrolytes adequate. Did not require replacement at this time. 8. Prophylaxis: Sequential compression devices. I am holding anticoagulation as patient just had a cath with heparin, pending further evaluation of his elevated lipase. 9. COR status is full. 10. Disposition: Patient admitted to inpatient status, currently in the intensive care unit for pos t catheterization monitoring. /[id number]/MODL
[2018-04-07 05:54] LABS: CREATINE KINASE 144 IU/L (0-224)
[2018-04-07] MEDS ORDERED: CARVEDILOL 3.125 MG TAB PO SCH (08:00)
[2018-04-07] MEDS ORDERED: INSULIN LISPRO 100 UNIT/ML SC SCH (08:00)
[2018-04-07] MEDS ORDERED: ATORVASTATIN CALCIUM 40 MG TAB PO SCH ×2 (09:00→10:45)
[2018-04-07] MEDS ORDERED: INSULIN GLARGINE 100 UNITS/ML UNIT SC SCH ×3 (09:00→21:00)
--- NOTE | 2018-04-07 09:09 | PDCARPN ---
Cardiology Progress Note Chief Complaint: Chest pain Assessment/Plan: Assessment: Bao is a 58 y/o M with a history of DM, HLP, and CAD s/p stenting to the LAD and balloon angioplasty to the diag in 04/2017. He was admitted with CP and nausea which is similar but not the same as his prior angina pain. He had ST changes in the inferior leads and therefore was taken to the labor delivery rn at midnight by Dr. Castaneda. He was found to have a patent LAD, LCX, and RCA. His diag had a 70% ostial and mid lesion which was unchanged from his prior cath one year ago. No intervention was done. His Lipase was elevated at 2,526 Plan: 1. CAD s/p stenting in 04/2017 with repeat angiogram last night showing a patent LAD, RCA, and LCX. The Diag has moderate disease which is stable when compared to his angiogram a year ago. Continue medical management with Lipitor and Coreg. If he has recurrent angina consider intervention of the diag. 2. Elevated Lipase- likely pancreatitis. Will transfer care to the Hospitalist. 3. HLP- well controlled on Lipitor. 4. DM-per hospitalists. 04/07/18 09:10 Subjective: He denies any CP or abdominal discomfort at this time. He currently has no complaints. Reviewed/Discussed With: hospitalist Objective: Vital Signs (8 Hrs) Temp Pulse Resp BP Pulse Ox 04/07/18 07:00 59 L 14 109/54 L 97 04/07/18 06:00 58 L 18 104/60 94 04/07/18 05:00 59 L 16 98/61 L 95 04/07/18 04:00 61 18 105/59 L 95 04/07/18 02:00 36.6 C 64 17 117/58 L 94 Intake/Output (24 Hrs) 04/06/18 04/07/18 04/08/18 05:59 05:59 05:59 Intake Total 1000 Output Total 750 Balance 250 Intake: Oral (ml) 0 IV Infused (ml) 1000 Output: Urine (ml) 750 Urinal 750 Other: Weight 69.9 kg Result Diagrams: 04/07/18 05:30 04/07/18 05:30 Cardiac Labs: Cardiac Lab Results (72 Hrs) 04/07/18 05:30 Troponin I < 0.012 - Physical Exam Constitutional: WDWN Cardiovascular: regular rate and rhythm, no murmurs, no rubs, no gallops Respiratory: clear to auscultate bilat, no crackles, no wheezes Skin: no edema Neurologic: AAOx3 ICD10 Worksheet Patient Problems: Problems Problem Status Onset Chest pain Acute STEMI (ST elevation myocardial infarction) Acute Headache Acute
[2018-04-07] MEDS ORDERED: NS 1,000 ML IV SCH (09:45)
[2018-04-07] MEDS ORDERED: ATORVASTATIN CALCIUM 40 MG TAB PO ONE (10:45)
[2018-04-07] MEDS ORDERED: ASPIRIN EC 81 MG TAB PO SCH (10:45)
[2018-04-07] MEDS ORDERED: ASCORBIC ACID 500 MG TAB PO SCH (10:45)
[2018-04-07] MEDS ORDERED: CLOPIDOGREL BISULFATE 75 MG TAB PO SCH (10:45)
[2018-04-07 10:56] VITALS: BP 95/55
--- NOTE | 2018-04-07 11:04 | PDMN ---
Medical Necessity Medical necessity: MCG M250 pancreatitis A-2 days: acute CP, pt with known CAD with previous stenting in Apr 2017., EKG shows st elevations, emergent cardiac cath, anticipate > 2 MN ongoing med nec care, further eval and monitoring
--- NOTE | 2018-04-07 13:09 | GDS ---
DISCHARGE DIAGNOSES: Diabetes, hyperlipidemia, coronary artery disease with stent and balloon angioplasty, May 02, chest pain, pancreatitis, likely med related. HISTORY OF PRESENT ILLNESS: A 58-year-old male with diabetes, hyperlipidemia, CAD with stent to LAD in April. He presented with chest pain, nausea. He had some ST changes in his inferior leads. Thus was taken to the laboratory secretary by Dr. Castaneda. He had a patent LAD, left circumflex, and RCA. His diagonal had a 70% ostial mid lesion, which was unchanged from his prior cath a year ago. No intervention was done. Of note, his lipase was elevated at 2526. Denied excessive alcohol. HOSPITAL COURSE BY PROBLEM: 1. Atypical chest pain: concern with h/o stents.Cath showed patent LAD, left circumflex, and RCA. No intervention was done. Continue aggressive medical management. If he has recurrent and angina, consider intervention to the diagonal that was 70%. 2. Pancreatitis: recently started on Tradjenta that can cause this.Denies excessive alcohol. Normal triglycerides. Abdominal ultrasound was negative for acute pancreatitis. Note had a nodular hepatic contour, which could represent early cirrhosis. So he is now eating without any pain. Would recommend referral from his PCP to a suction drum drier operator to follow up. 3. CAD. Continue Coreg, aspirin, statin, and Plavix. 4. Hyperlipidemia. Statin. 5. Diabetes. Continue detemir. Discontinue Tradjenta.Follow up with his PCP. 6. Patient is stable for discharge home. He is eating without issue. MEDICATION CHANGES: Stop Tradjenta. FOLLOWUP: Primary care physician for diabetes and Gastroenterology referral. PHYSICAL EXAMINATION: VITAL SIGNS: Today, temperature 36.6. Blood pressure is 100/54. Heart rate is in the 50s to 60s, respirations 14, 95% on room air. GENERAL APPEARANCE: Well-appearing, smiling in no acute distress. HEENT: PERRLA. Moist mucous membranes. CV: Regular rate and rhythm. LUNGS: Clear. ABDOMEN: Soft, nontender. No tenderness, rebound, or guarding. : No Dan. MUSCULOSKELETAL: 5/5 upper, lower extremities. NEURO: 2-12 intact. PSYCH: Alert and oriented x3. TIME SPENT ON DISCHARGE: Greater than 30 minutes. My interview and examination were done with a die designer. /[id number]/MODL MTDD
[2018-04-08] MEDS ORDERED: ATORVASTATIN CALCIUM 40 MG TAB PO SCH (09:00)
== END 2018-04-07 13:06 | disposition home or self-care (01) | DRG 286 ==
LOC: F2N 23:38
PROVIDERS: ADMIT Internal Medicine Cardiovascular Disease; ATTEND Internal Medicine
PROC: B2151ZZ Fluoroscopy of Left Heart using Low Osmolar Contrast (ICD-10-PCS; principal; 2018-04-06)
PROC: 4A023N7 Measurement of Cardiac Sampling and Pressure, Left Heart, Percutaneous Approach (ICD-10-PCS; principal; 2018-04-06)
PROC: B2111ZZ Fluoroscopy of Multiple Coronary Arteries using Low Osmolar Contrast (ICD-10-PCS; principal; 2018-04-06)
DX: R07.89 Other chest pain (principal); K85.90 Acute pancreatitis without necrosis or infection, unspecified; I10 Essential (primary) hypertension; I25.10 Atherosclerotic heart disease of native coronary artery without angina pectoris; E78.5 Hyperlipidemia, unspecified; E11.9 Type 2 diabetes mellitus without complications; Z79.02 Long term (current) use of antithrombotics/antiplatelets; Z79.82 Long term (current) use of aspirin; Z95.5 Presence of coronary angioplasty implant and graft; Z79.4 Long term (current) use of insulin
CPT/HCPCS: 84484-ER; C1760; G0480; J0153; J0583; J1644; J1815; J2250; J3010; Q9967